=== PATIENT | male | born 1965 | race Caucasian/White ===

== ENCOUNTER 2023-08-25 20:50 | Emergency (ER) | payer OTHER, SELFPAY ==
[2023-08-25 20:55] VITALS: BP 144/98; PULSE 101; RESP 18; TEMP 36.8; O2SAT 95; BMI 33.2
--- NOTE | 2023-08-25 20:57 | ED_ITS ---
HPI - Chest Pain General Chief Complaint: Chest Pain Stated Complaint: Chest Pain Time Seen by Provider: 08/25/23 20:56 History of Present Illness HPI narrative: CC - chest pain Throughout the day, the patient has been having intermittent bouts of transient chest pain - mid sternal, non radiating, without associated symptoms - that last 2-3 seconds and has occurred 5 or 6 times today, including on the way here. He is not having pain now. He denied any recent fall, injury or recent activity that might account for the pain. No fever, chills, cough or cold symptoms. No GI or symptoms. Related Data Home Medications Medication Instructions Recorded Confirmed amlodipine 5 mg tablet 5 mg PO DAILY 08/25/23 08/25/23 atorvastatin 40 mg tablet 40 mg PO DAILY 08/25/23 08/25/23 loratadine 10 mg tablet 10 mg PO Q24H 08/25/23 08/25/23 losartan 100 1 tab PO DAILY 08/25/23 08/25/23 mg-hydrochlorothiazide 25 mg tablet metoprolol succinate 25 mg 25 mg PO DAILY 08/25/23 08/25/23 tablet,extended release 24 hr Allergies Allergy/AdvReac Type Severity Reaction Status Date / Time Penicillins Allergy Severe Anaphylaxis Verified 08/25/23 21:00 [facility] Medical History (Updated 08/25/23 @ 21:20 by Rolly Perez) Hypertension ?I10 - Essential (primary) hypertension (ICD-10) Social History Smoking status: Former smoker Exam Narrative Exam Narrative: Nurses notes and vital signs reviewed and patient is not hypoxic. afebrile General: Well-appearing and in no apparent distress. Skin: Warm, dry, no pallor noted. Eye: Pupils are equal, round and EOMI. No scleral icterus. Cardiovascular: Regular Rate and Rhythm without murmur, gallop or rub. Respiratory: No accessory muscle use or respiratory distress. Lungs are clear to auscultation, no wheezing, rales or rhonchi Chest Wall: no tenderness Musculoskeletal: normal ROM, no calf or popliteal tenderness, no lower extremity edema/swelling GI: Abdomen is soft, non-distended. Normal bowel sounds. No tenderness to palpation. No rebound, guarding, or rigidity noted. Neurological: A&O x4. No cranial nerve dysfunction observed. No truncal ataxia. Moves all extremities. Sensation intact. Psychiatric: Cooperative and interactive. Normal mood and affect. Constitutional Vital Signs, click to edit/add: Last Vital Signs Temp 98.2 F 08/25/23 20:55 Pulse 97 H 08/25/23 21:58 Resp 14 08/25/23 21:58 BP 118/70 08/25/23 21:58 Pulse Ox 98 08/25/23 21:58 O2 Del Method Room Air 08/25/23 21:58 Course Vital Signs Vital signs: Vital Signs Temperature 98.2 F 08/25/23 20:55 Pulse Rate 101 H 08/25/23 20:55 Respiratory Rate 18 08/25/23 20:55 Blood Pressure 144/98 H 08/25/23 20:55 Pulse Oximetry 95 08/25/23 20:55 Oxygen Delivery Method Room Air 08/25/23 20:55 Temperature 98.2 F 08/25/23 20:55 Pulse Rate 97 H 08/25/23 21:58 Respiratory Rate 14 08/25/23 21:58 Blood Pressure 118/70 08/25/23 21:58 Pulse Oximetry 98 08/25/23 21:58 Oxygen Delivery Method Room Air 08/25/23 21:58 MDM - Chest Pain MDM Narrative Medical decision making narrative: Patient was placed on groundwater monitoring technician and EKG obtained. Blood drawn and sent for evaluation, including lactate, procalcitonin and blood cultures per sepsis protocol - due to tachycardia. portable CXR obtained. EKG normal. CXR negative. CBC normal. Lactate 2.0. Negative Procalcitonin. CMP normal except elevated glucose at 336. Troponin negative - x2. HEART score = 2 indicating low risk and discharge home with out-patient follow up is recommended. Discussed elevated glucose level - patient already has appointment scheduled with PCP to get fasting blood testing and will follow up re: glucose. Patient and I - in the presence of his - discussed his symptoms, test results, HEART score, reason he is being discharged and reasons to return to the ED. Lab Data Attestation: I reviewed the patient's lab results. Labs: Lab Results 08/25/23 08/25/23 08/25/23 Range/Units 21:14 22:20 22:30 WBC 7.7 (4.0-11.0) 10^3/uL RBC 5.29 (4.70-6.10) 10^6/uL Hgb 16.2 (14.0-18.0) g/dL Hct 46.4 (42.0-54.0) % MCV 87.7 (80.0-94.0) fL MCH 30.6 (25.9-34.0) pg MCHC 34.9 (29.9-35.2) g/dL RDW 11.9 (11.0-15.0) % Plt Count 186 (150-450) 10^3/uL MPV 10.9 (9.5-13.5) fL Neut % (Auto) 54.7 (43.0-75.0) % Lymph % (Auto) 29.7 (20.5-60.0) % Placer % (Auto) 11.4 (1.7-12.0) % Eos % (Auto) 3.2 (0.9-7.0) % Baso % (Auto) 0.6 (0.2-2.0) % Neut # (Auto) 4.2 (1.4-6.5) 10^3/uL Lymph # (Auto) 2.3 (1.2-3.8) 10^3/uL Placer # (Auto) 0.9 H (0.3-0.8) 10^3/uL Eos # (Auto) 0.3 (0.0-0.7) 10^3/uL Baso # (Auto) 0.1 (0.0-0.1) 10^3/uL Abs Immat Gran (auto) 0.03 (0.00-0.03) 10^3/uL Imm/Tot Granulo (auto) 0.4 (0.0-0.5) % Sodium 139 (136-145) mmol/L Potassium 3.5 (3.5-5.1) mmol/L Chloride 100 (98-107) mmol/L Carbon Dioxide 28.2 (21.0-32.0) mmol/L Anion Gap 14.3 BUN 15.0 (7.0-18.0) mg/dL Creatinine 1.03 (0.70-1.30) mg/dL Est GFR ( Amer) >60 (>=60) Est GFR (Non-Af Amer) >60 (>=60) BUN/Creatinine Ratio 14.6 Glucose 336 H (74-106) mg/dL Lactate 2.0 (0.4-2.0) mmol/L Calcium 9.2 (8.5-10.1) mg/dL Total Bilirubin 0.5 (0.2-1.0) mg/dL AST 22 (15-37) U/L ALT 34 (16-63) U/L Alkaline Phosphatase 82 (46-116) U/L Troponin I High Sens 5.2 5.4 (4.0-76.1) pg/mL Total Protein 7.3 (6.4-8.2) g/dL Albumin 3.7 (3.4-5.0) g/dL Globulin 3.6 g/dL Albumin/Globulin Ratio 1.0 Procalcitonin <0.05 (0.00-0.50) ng/mL Urine Color Lt. yellow (YELLOW) Urine Clarity Clear (CLEAR) Urine pH 7.0 (5.0-9.0) Ur Specific [place] 1.010 (1.005-1.025) Urine Protein Negative (NEG/TRACE) mg/dL Urine Glucose (UA) >=1000 A (NEGATIVE) mg/dL Urine Ketones Negative (NEGATIVE) mg/dL Urine Occult Blood Negative (NEGATIVE) Urine Nitrite Negative (NEGATIVE) Urine Bilirubin Negative (NEGATIVE) Urine Urobilinogen 0.2 (0.2-1.0) EU/dL Ur Leukocyte Esterase Negative (NEGATIVE) Imaging Data Chest x-ray: Attestation: I have reviewed the pertinent imaging results. Radiologist's impression: ITS Impressions Chest X-Ray 08/25/23 21:05 IMPRESSION: No acute cardiopulmonary process. Electronically authenticated by: JOCELINE MCCAIN Date: 08/25/2023 21:48 ECG Data Attestation: I personally reviewed and interpreted this ECG as follows: Interpretation: EKG interpretation: Emergency Department physician interpretation. Normal sinus rhythm at 99bpm. Normal axis, normal intervals and no ST segment el evation or depression. Normal EKG. Heart Score History: Slightly/Non-Suspicious ECG: Normal Age: >45-<65 years Risk Factors: 1 or 2 Risk Factors Troponin: <Normal Limit Total Heart Score Recommendations & Risks:: 2 Discharge Plan Discharge Chief Complaint: Chest Pain Clinical Impression: Chest pain Patient Disposition: Home, Self-Care Time of Disposition Decision: 23:04 Prescriptions / Home Meds: No Action atorvastatin 40 mg tablet 40 mg PO DAILY metoprolol succinate 25 mg tablet extended release 24 hr 25 mg PO DAILY amlodipine 5 mg tablet 5 mg PO DAILY losartan-hydrochlorothiazide 100-25 mg tablet 1 tab PO DAILY loratadine 10 mg tablet 10 mg PO Q24H Instructions: Chest Pain (ED) Referrals: Clara Hernández [Primary Care Provider] - 1 week Stand Alone Forms: Portal Instructions
--- NOTE | 2023-08-25 21:05 | ECG_ITS ---
The [facility] Test Date: 2023-08-25 Pat Name: ROBERT FRITZ Department: Room: - Gender: Male Housekeeping Aid: : 1965 Requested By: Rolly Perez Order Number: [id number] Reading MD: THADDEUS WATTERS Measurements Intervals [place] Rate: 99 P: 69 ME: 180 QRS: 69 QRSD: 98 T: 66 QT: 338 QTc: 394 Interpretive Statements 1100 Sinus rhythm 9110 normal ECG No previous ECG available for comparison Electronically Signed On 08-29-2023 5:54:49 EST by THADDEUS WATTERS
--- NOTE | 2023-08-25 21:05 | XR_ITS ---
The [address] [address] Patient Name: ROBERT FRITZ MRN: [id number] date: 1965 Sex: M Assigned Patient Location: ER Current Patient Location: ER Accession/Order Number: [id number] Exam Date: 08/25/2023 21:25 Report Date: 08/25/2023 21:48 At the request of: ERICA PEARSON Procedure: XR chest 1V EXAM: XR chest 1V HISTORY: chest pain COMPARISON: Chest x-ray 07/19/2015 TECHNIQUE: Single AP radiograph of the chest FINDINGS: No pneumothorax, pleural effusion or consolidation. Normal heart size. No acute osseous abnormality. Chronic appearing right fifth rib fracture. XR/XR chest 1V IMPRESSION: No acute cardiopulmonary process. Electronically authenticated by: JOCELINE MCCAIN Date: 08/25/2023 21:48
[2023-08-25 21:22] VITALS: PULSE 99
[2023-08-25] MEDS: 0.9 % SODIUM CHLORIDE 1,000 ML 999 ML IV (21:30)
[2023-08-25 21:35] VITALS: BP 138/80; PULSE 94; RESP 18; O2SAT 97
[2023-08-25 21:36] LABS: Basophils Absolute Auto 0.1 10^3/uL (0.0-0.1); Basophils Percent Auto 0.6 % (0.2-2.0); Eosinophils Absolute Auto 0.3 10^3/uL (0.0-0.7); Eosinophils Percent Auto 3.2 % (0.9-7.0); Hematocrit 46.4 % (42.0-54.0); Hemoglobin 16.2 g/dL (14.0-18.0); Immature Granulocytes Abs Auto 0.03 10^3/uL (0.00-0.03); Immature Granulocytes Pct Auto 0.4 % (0.0-0.5); Lymphocytes Absolute Auto 2.3 10^3/uL (1.2-3.8); Lymphocytes Percent Auto 29.7 % (20.5-60.0); Mean Corpuscular HGB Conc 34.9 g/dL (29.9-35.2); Mean Corpuscular Hemoglobin 30.6 pg (25.9-34.0); Mean Corpuscular Volume 87.7 fL (80.0-94.0); Mean Platelet Volume 10.9 fL (9.5-13.5); Monocytes Absolute Auto 0.9 10^3/uL (0.3-0.8); Monocytes Percent Auto 11.4 % (1.7-12.0); Neutrophils Absolute Auto 4.2 10^3/uL (1.4-6.5); Neutrophils Percent Auto 54.7 % (43.0-75.0); Platelet Count 186 10^3/uL (150-450); Red Blood Count 5.29 10^6/uL (4.70-6.10); Red Cell Distribution Width 11.9 % (11.0-15.0); White Blood Count 7.7 10^3/uL (4.0-11.0)
[2023-08-25 21:49] LABS: Anion Gap 14.3
[2023-08-25 21:53] LABS: Alanine Aminotransferase 34 U/L (16-63); Albumin Level 3.7 g/dL (3.4-5.0); Alkaline Phosphatase 82 U/L (46-116); Aspartate Amino Transferase 22 U/L (15-37); BUN Creatinine Ratio 14.6; Bilirubin Total 0.5 mg/dL (0.2-1.0); Calcium 9.2 mg/dL (8.5-10.1); Carbon Dioxide 28.2 mmol/L (21.0-32.0); Chloride 100 mmol/L (98-107); Estimated GFR (African America >60 (>=60); Estimated GFR (Non-African Ame >60 (>=60); Globulin 3.6 g/dL; Glucose 336 mg/dL (74-106); Potassium 3.5 mmol/L (3.5-5.1); Sodium 139 mmol/L (136-145); Total Protein 7.3 g/dL (6.4-8.2); Troponin I High Sensitivity 5.2 pg/mL (4.0-76.1)
[2023-08-25 21:58] VITALS: BP 118/70; PULSE 97; RESP 14; O2SAT 98
[2023-08-25 22:08] LABS: PROCALCITONIN <0.05 ng/mL (0.00-0.50)
[2023-08-25 22:27] LABS: Bilirubin Urine NEGATIVE (NEGATIVE); Blood Urine NEGATIVE (NEGATIVE); Clarity Urine CLEAR (CLEAR); Color Urine LT. YELLOW (YELLOW); Glucose Urine UA >=1000 mg/dL (NEGATIVE); Ketones Urine NEGATIVE (NEGATIVE); Leukocyte Esterase Urine NEGATIVE (NEGATIVE); Nitrite Urine NEGATIVE (NEGATIVE); Protein Urine NEGATIVE (NEG/TRACE); Urobilinogen Urine 0.2 EU/dL (0.2-1.0)
[2023-08-25 22:30] LABS: Urine Microscopic Indicated NO
[2023-08-25 22:56] LABS: Troponin I High Sensitivity 5.4 pg/mL (4.0-76.1)
== END 2023-08-25 23:15 | disposition home or self-care (01) ==
PROVIDERS: Emergency Provider Emergency Medicine; PCP Family Medicine
DX: R07.9 Chest pain, unspecified (principal); I10 Essential (primary) hypertension; Z79.899 Other long term (current) drug therapy; Z87.891 Personal history of nicotine dependence
CPT/HCPCS: 36415; 71045; 80053; 81003; 83605; 84145; 84484; 85025; 87040; 93005; 99285

== ENCOUNTER 2024-09-28 17:51 | Emergency (ER) | payer OTHER, SELFPAY ==
[2024-09-28] VITALS (14 sets, daily range): BP systolic 118–125; BP diastolic 88–95; PULSE 79–95; TEMP 36.8; O2SAT 93–97; BMI 31.9
--- OUTSIDE RECORDS SUMMARY | 2024-09-28 18:02 | XMS_ITS | CCD ---
Author Organization [facility] Care Team Providers Care Customer Service Sales Consultant Name Role Phone FIDELIARADHACODY Attending Unavailable NON STAFF Primary Care Provider UnavailMD Michael Liu Attending Provider LEANNE Finn Primary Care Provider [phone] Maricruz Torres MD Primary Care Provider Michael Crews MD Attending Provider Dinora (Clinic) Tati WHITAKER Primary Care Provider ARY CRAIG Attending Unavailable MARICRUZ TORRES Primary Care Unavailab ARY Hooker Referring Unavailable MARICRUZ TORRES Primary Care Unavailab le SELF Referring Unavailable ARY CRAIG Attending Unavailable MARICRUZ TORERS Primary Care Unavailab le Michael Crews Admitting Unavaila ble [facility] (Clinic)Tati Primary Care Unavailabl e Michael Crews Attending Unavaila ble NON STAFF Primary Care Unavailable Michael Crews Attending Unavaila ble Michael Crews Admitting Unavaila ble Michael Crews Admitting Unavaila ble Óscar Finn Primary Care Unavailable Michael Crews Attending Unavaila ble Allergies Allergy Classification Reported Allergen(s) Allergy Type Date of Onset Reaction(s) Facility (5 sources) Penicillin; Translations: [PENICILLIN] Drug Allergy 03-14-2018 Anaphylaxis [facility] (3 sources) Ampicillin; Translations: [ampicillin] Drug Allergy 04-09-2024 Anaphylaxis [facility] (3 sources) Penicillins; Translations: [Penicillins] Allergy to substance 04-09-2024 Anaphylaxis [facility] Medications Current Medications Medication Drug Class(es) Dates Sig (Normalized) Sig (Original) amLODIPine 5 mg oral tablet (6 sources) Dihydropyridine Calcium Channel Humble Start: amLODIPine (NORVASC) 5 mg tablet Take by mouth. 08/21/2020 Active atorvastatin 40 mg oral tablet (6 sources) HMG-CoA Reductase Inhibitor Start: 4 atorvastatin (LIPITOR) 40 mg tablet Take by mouth. 08/25/2023 Active Bilevel Positive Airway Pressure (Bipap) (1 source) Start: 4 Bilevel Positive Airway Pressure (Bipap) Active 0 .ROUTE April 09, 2024 12:00am As directed [facility] Bilevel Positive Airway Pressure (Bipap) unit (1 source) Start: Bilevel Positive Airway Pressure (Bipap) unit Active 0 .ROUTE April 08, 2024 11:00pm As directed [facility] empagliflozin 10 mg oral tablet (7 sources) Sodium-Glucose Cotransporter 2 Inhibitor Start: 4 End: 5 take 1 tablet by mouth once daily at breakfast empagliflozin (JARDIANCE) 10 mg tablet Indications: Type 2 diabetes mellitus without complication, without long-term current use of insulin (HCC) Take 1 tablet by mouth daily with breakfast. 90 tablet 3 07/11/2024 Active hydroCHLOROthiazide 25 mg / losartan potassium 100 mg oral tablet (6 sources) Thiazide Diuretic, Angiotensin 2 Receptor Humble Start: 4 take 1 tablet by mouth once daily Losartan-Hydrochl orothiazide 100-25 mg tablet Active 1 TAB PO Daily April 08, 2024 11:00pm take 1 tablet by yaritza th once daily Losartan-Hydrochlorothiazide 100-12.5 mg per tablet Take 1 tablet by mouth once daily. Active 24 hr metoprolol succinate 25 mg extended release oral tablet (6 sources) beta-Adrenergic Humble Start: 08-24-2020 take 1 tablet by mouth once daily metoprolol succinate ER (TOPROL XL) 25 mg 24 hr tablet Take 25 mg by mouth once daily. 08/24/2020 Active Completed/Discontinued Medications Medication Drug Class(es) Dates Sig (Normalized) Sig (Original) glipiZIDE er 10 mg 24 hr extended release oral tablet (1 source) Sulfonylurea End: 03-25-2024 take 1 tablet by mouth once daily at breakfast glipiZIDE (GLUCOTROL XL) 10mg 24 hr tablet 1 tablet with breakfast Orally Once a day for 90 days 03/25/2024 Discontinued meloxicam 15 mg oral tablet (4 sources) Nonsteroidal Anti-inflammatory Drug Start: 07-02-2019 End: 07-11-2024 take 1 tablet by mouth once daily meloxicam (MOBIC) 15 mg tablet Indications: Tear of medial meniscus of right knee, current, unspecified tear type, initial encounter Take 1 tablet by mouth once daily. 30 tablet 1 07/02/2019 07/11/2024 Discontinued Problems Active Problems Problem Classification Problem Date Documented Da te Episodic/Chronic Diabetes mellitus without complication (5 sources) Type 2 diabetes mellitus without complication; Translations: [Type 2 diabetes mellitus without complications] Onset: 03-25-2024 03-25-2024 Chronic Disorders of lipid metabolism (2 sources) Hyperlipidemia; Translations: [Other hyperlipidemia] 03-25-2024 Chronic Essential hypertension (4 sources) Essential hypertension; Translations: [Essential (primary) hypertension] 03-25-2024 Chronic Other lower respiratory disease (4 sources) Dyspnea; Translations: [Dyspnea, unspecified] 01-03-2024 Episodic Other male genital disorders (4 sources) Pain in penis; Translations: [Other specified disorders of penis] Onset: 03-16-2018 03-16-2018 Chronic Residual codes; unclassified (4 sources) Obstructive sleep apnea syndrome; Translations: [Obstructive sleep apnea (adult) (pediatric)] 09-27-2023 Chronic Residual codes; unclassified (4 sources) Obstructive sleep apnea (adult) (pediatric); Translations: [Obstructive sleep apnea (adult)(pediatric)] 01-03-2024 Chronic Past or Other Problems Problem Classification Problem Date Documented Da te Episodic/Chronic Complications of surgical procedures or medical care (4 sources) Complication of cutaneous surgery; Translations: [Unspecified complication of procedure, initial encounter] Onset: 03-16-2018 03-16-2018 Episodic Other lower respiratory disease (5 sources) Dyspnea, unspecified; Translations: [Other respiratory abnormalities] Onset: 05-13-2024 01-03-2024 Episodic Results Test Name Value Interpretation Reference Range Facility CNOVon 07-11-2024 CNOV Office Visit (ENDOLN ) PATRICK FORD ([id number]) 1965 M Date Time Provider Department 07/11/24 1:00 PM ARY CRAIG ENDOLN During your visit today, we recorded the following information about you: Pulse Blood pressure Weight 75/minute 95/60 101.3 kg Ary Craig, LEO.SUPERVISORY AIDE 07/11/2024 1:20 PM Signed Endocrinology Follow Up History of Present Illness Patrick Ford is a 58 year old male presents today for follow up of DM Type 2. At [facility] stopped glipizide XL and started Jardiance. He has been checking his blood sugar very intermittently, about twice per week, but feels it is running higher. Has been getting readings 130-140, with one as high as 200. He cannot remember what time of day these were taken. He is wondering if he should resume glipizide instead. He has concerns for amputation risk on SGLT2i. He has no history of PAD. [facility] the [facility] but would like refill of this sent. Date of Diagnosis: 2023 Last HbA1c: Hemoglobin A1C (POCT) (%) Date Value 07/11/2024 6.8 03/25/2024 6.1 Family history of diabetes includes grandfather, aunt, sister. Complications Microvascular: none Macrovascular: none Diabetic Foot and Retinal Eye Exam not Overdue Prior DM Medications: Metformin-diarrhea Current DM Related Medications: Current Medications 07/11/2024 DIABETES THERAPIES Medication Dosage Pharm Subclass empagliflozin (JARDIANCE) 10 mg tablet Take 1 tablet by mouth daily with breakfast. Antihyperglycemic - Sodium Glucose Cotransporter-2 (SGLT2) Inhibitors CARDIOVASCULAR Medication Dosage Pharm Subclass amLODIPine (NORVASC) 5 mg tablet Take by mouth. Calcium Channel Blockers - Dihydropyridines atorvastatin (LIPITOR) 40 mg tablet Take by mouth. Antihyperlipidemic - HMG CoA Reductase Inhibitors (statins) Losartan-Hydrochlorothi azide 100-12.5 mg per tablet Take 1 tablet by mouth once daily. Angiotensin II Receptor Humble (ARB)-Diuretic Combinations metoprolol succinate ER (TOPROL XL) 25 mg 24 hr tablet Take 25 mg by mouth once daily. Beta Blockers Cardiac Selective OTHER Medication Dosage Pharm Subclass blood sugar diagnostic ([employer] ULTRA TEST) test strip Use with blood glucose test two times a day. Medical Supplies and DME - Blood Glucose Tests meloxicam (MOBIC) 15 mg tablet Take 1 tablet by mouth once daily. NSAID Analgesics (LAZARO Non-Specific) - Oxicam Derivatives Physical Activity: No formal program Diet: CHO Controlled Diet SMBG Frequency of Monitoring: Twice a week BG Values: 130-140 up to 200s Hypoglycemia Frequency: none Past History, Medications, Allergies No past medical history on file. No past surgical history on file. ALLERGIES Allergen Reactions Penicillin Anaphylaxis No family history on file. Review of Systems GENERAL: No weight loss, malaise or fevers RESPIRATORY: Negative for cough, hemoptysis, wheezing, COPD, dyspnea or shortness of breath CARDIOVASCULAR: Negative for chest pain, leg swelling, CHF or palpitations GI: No nausea, vomiting, or diarrhea ENDOCRINE: Negative for cold or heat intolerance, polyuria, polydipsia and goiter NEUROLOGIC:Negative for focal numbness or weakness, headaches and dizziness or syncope. Physical examination BP 95/60 (BP Site: Right Arm, BP Position: Sitting, BP Cuff Size: Large Adult) Pulse 75 Wt 101.3 kg (223 lb 5.2 oz) SpO2 97% General appearance: Well appearing, alert, in no acute distress, well-hydrated, well nourished. Skin: Skin color, texture, turgor normal, no suspicious rashes or lesions HEART: normal rate LUNGS: unlabored, normal respiratory rate EXTREMITIES No deformities, No skin discoloration and No edema NEURO: Speech normal, mental status intact, no tremor noted. Previous Laboratory Results LABS Glucose (mg/dL) Date Value 03/25/2024 91 Potassium (mmol/L) Date Value 03/25/2024 3.8 Sodium (mmol/L) Date Value 03/25/2024 138 Chloride (mmol/L) Date Value 03/25/2024 100 CO2 (mmol/L) Date Value 03/25/2024 27 Creatinine (mg/dL) Date Value 03/25/2024 0.83 BUN (mg/dL) Date Value 03/25/2024 15 Anion Gap (mmol/L) Date Value 03/25/2024 11 Calcium, Total (mg/dL) Date Value 03/25/2024 9.4 Estimated Glomerular Filtration Rate (mL/min/1.73m?) Date Value 03/25/2024 101 ALT (U/L) Date Value 03/25/2024 30 No results found for: TSH , FREET4 Impression/Recommendati ons IMPRESSION Patrick Ford is a 58 year old here for evaluation of DM Type 2 with no known complications. RECOMMENDATIONS: 1. Glycemic control: Target HbA1C is less than 7.0% per ADA guidelines. This patient is at target but POC readings seem to be averaging higher, however at infrequent testing frequency. Will have him check BID before meals over the next two weeks and forward readings. If POC readi (more content not included)... Normal [facility] HEMOGLOBIN A1C (POC)on 07-11 HbA1c (Bld) [Mass fraction] 6.8 % Abnormal 4.3 - 5.6 % [facility] Comment on above: Location:On license of [facility], [address] [place] [address], [facility] Point of care (POC) Hemoglobin A1c (HGBA1C) testing is intended to assess glucose control and provide a management tool for patients known to have diabetes and their healthcare providers. Target HGBA1C levels may depend on specific clinical circumstances. POC HGBA1C is not intended for use as a diagnostic or screening test; laboratory-based testing should be used for diagnostic purposes. The following information is supplemental and may not be applicable to specific diabetes management situations: The POC device casting and pasting supervisor provides a normal range of 4.2% to 6.5% for the HGBA1C POC test. However, the [place] [employer] guidelines indicate that patients with HGBA1C in the range of 5.7% to 6.4% are at increased risk for development of diabetes and that intervention by lifestyle modification may be beneficial. A HGBA1C level greater than or equal to 6.5% is considered diagnostic of diabetes, pending confirmatory testing. Use of HGBA1C testing to evaluate glucose control may not be appropriate for patients with hemoglobin variants or other conditions (e.g. anemia) that alter red blood cell lifespan. Interpretation and review of laboratory results Abnormal [facility] echo transthoracicon [facility] echo transthoracic [address] [place] [address] Echocardiogram Signed Patient: Patrick Ford MR#: [id number] 0005 : 1965 Acct:[id number] Age/Sex: 58 / M ADM Date: 05/13/24 Loc: Room: Type: [facility] Attending Dr: Michael Crews MD Ordering Provider: Michael Crews MD Date of Service: 05/13/24 ECH/ECH echo transthoracic: R06.00 - Dyspnea, unspecified Copies to: MD Ben Joseph MD Patrick Lee PM Patient Location: : 1965 Gender: Male (MM/DD/YYYY) Age: 58 Years Ordering Physician: Michael Crews Height: 68 in Weight: 215.004 lb Performed By: FRANK Pham BSA: 2.11 m2 BP: 125 / 82 mmHg HR: 71 bpm Reason For Study: R06.00 - Dyspnea, unspecified History: HTN, HLD, DM, Former Smoker, COVID, Palpiations + -------+ Interpretation Summary Ejection Fraction = 55-60%. The left ventricular size and thickness are normal. The left ventricular wall motion is normal. A variety of Doppler measurements indicate normal left ventricular diastolic function. There is trace tricuspid regurgitation. Right ventricular systolic pressure is normal. There is no comparison study available. This was essentially a normal study. Procedure/Quality: A two-dimensional transthoracic echocardiogram with color flow, Doppler and injection of contrast agent Definity was performed. The study was technically good in quality. Left Ventricle: The left ventricular size and thickness are normal. Ejection Fraction = 55-60%. A variety of Doppler measurements indicate normal left ventricular diastolic function. The left ventricular wall motion is normal. Left Atrium: The left atrium appears normal in size. Right Atrium: The right atrium appears normal in size. Right Ventricle: The right ventricle is normal in size and function. Aortic Valve: The aortic valve is normal in structure. No hemodynamically significant valvular aortic stenosis. No aortic regurgitation is present. Mitral Valve: The mitral valve is normal in structure. No significant mitral valve stenosis. There is no mitral regurgitation noted. Tricuspid Valve: The tricuspid valve is normal in structure. There is trace tricuspid regurgitation. Right ventricular systolic pressure is normal. Pulmonic Valve: The pulmonic valve is not well visualized. No significant pulmonic regurgitation. Arteries: The aortic root is normal size. Pericardium/Pleura: No pericardial effusion seen. There is no pleural effusion. IVC/Hepatic Veins: The inferior vena cava is normal in size, with a normal collapsibility index. MMode/2D Measurements Calculations IVSd (0.7-1.1 cm): 0.98 cm LVIDd (3.7-5.4 cm): 4.8 cm LVPWd (0.7-1.1 cm): 1.02 cm LVIDs (2.3-3.6 cm): 2.8 cm LA dimension (2.3-4.0 cm): 3.4 Ao root diam (2.0-3.2 cm): 3.3 cm cm FS: 40.9 % Ao root area: 8.8 cm2 EDV(Teich): 108.6 ml LVOT diam: 1.98 cm ESV(Teich): 30.8 ml LVOT area: 3.1 cm2 EF(Teich): 71.6 % LAV(MOD-sp2): 43.8 ml LAV(MOD-sp4): 34.0 ml LA A2 area: 16.1 cm2 LA A4 area: 15.1 cm2 LA length (vol): 5.2 cm LA vol: 39.8 ml LA vol index: 18.9 ml/m2 Doppler Measurements Calculations MV E max lenora: 83.6 cm/sec Ao V2 max: 166.8 cm/sec MV A max lenora: 90.4 cm/sec Ao max P.1 mmHg MR max lenora: 334.9 cm/sec Ao mean P.5 mmHg MV V2 VTI: 36.8 cm Ao V2 mean: 120.3 cm/sec MV P1/2t: 76.8 msec Ao V2 VTI: 29.2 cm MV dec time: 0.22 sec TIMO(I,D): 2.16 cm2 MV dec slope: 461.2 cm/sec?? TIMO(V,D): 1.95 cm2 E/E' lat: 6.3 E/E' med: 8.5 TV max P.0 mmHg LV V1 max: 105.4 cm/sec TR max lenora: 174.5 cm/sec LV V1 max P.4 mmHg TR max P.2 mmHg LV V1 mean: 69.4 cm/sec RAP systole: 5.0 mmHg LV V1 mean P.31 mmHg LV V1 VTI: 20.5 cm + ----+ + ----+ + ----+ ----+ : Electronically : : signed by: Ben : : : : Xander : : : : on: 05/13/2024, : : : : 7:29 PM : + ----+ ----+ Transcribed By: SCV Performed At: 05/13/24 3624 Signed By: Ben Terrell MD 05/13/241926 Normal [facility] Ken 04-04-2024 ARJUN Telephone (4CQ) PATRICK FORD ([id number]) 1965 M Date Time Provider Department 04/04/24 ARY CRAIG 4CQ During your visit today, we recorded the following information about you: Tyree Figueroa 04/04/2024 4:18 PM Signed Patrick is calling Ary Craig APRN.SUPERVISORY AIDE today Patient is asking if One Touch ultra testing strips can be ordered as he is about to run out. Patient test twice a day. Please advise and send to [facility] pharmacy in [place]. Medication Refill Patient has been identified by name and birthdate. Duration of symptoms: N/A Person calling: self Call patient at: at home [phone] (home) [phone] (cell) Was an appointment scheduled: No Closing statement: Results or non-symptom based questions: Thank you for calling [facility], your call will be returned within the next business day. Ary Brothers APRN.VICKI 04/08/2024 7:53 AM Signed Rx sent. Allergies As of Date: 04/04/2024 Noted Allergy Reaction PENICILLIN 03/14/2018 10 - Anaphylaxis Date Reviewed: 03/25/2024 Reviewed by: Ary Craig APRN.VICKI - Fully Assessed Reason for Visit: Orders [681] Order(s):blood sugar diagnostic (ONETOUCH ULTRA TEST) test stripUse with blood glucose test two times a day.Disp: 200 StripRfl: 3 Prescriptions as of 04/08/2024 - blood sugar diagnostic (ONETOUCH ULTRA TEST) test strip Use with blood glucose test two times a day. - metoprolol succinate ER (TOPROL XL) 25 mg 24 hr tablet Take 25 mg by mouth once daily. - atorvastatin (LIPITOR) 40 mg tablet Take by mouth. - amLODIPine (NORVASC) 5 mg tablet Take by mouth. - empagliflozin (JARDIANCE) 10 mg tablet Take 1 tablet by mouth daily with breakfast. - meloxicam (MOBIC) 15 mg tablet Take 1 tablet by mouth once daily. - Losartan-Hydrochlorothi azide 100-12.5 mg per tablet Take 1 tablet by mouth once daily. Problem List As Of Date 04/04/2024 Noted Resolved Penile pain [N48.89] 03/16/2018 Circumcision complication [T81.9XXA] 03/16/2018 Prescriptions ordered this encounter Disp Refills Start End BLOOD SUGAR DIAGNOSTIC STRIPS 200 * 3 04/08/2024 Sig: Use with blood glucose test two times a day. Encounter Status:Closed by ARY CRAIG on 04/08/[address] [facility] [address] (ENDOLN) PATRICK FORD ([id number]) 1965 M Date Time Provider Department 03/26/24 ARY CRAIG ENDOLN During your visit today, we recorded the following information about you: Ary Craig APRN.SUPERVISORY AIDE 03/26/2024 9:21 AM Signed Please notify patient of results: Kidney and liver panel is normal, urine protein test was normal. LDL bad cholesterol is at goal. Triglycerides are elevated- this can improve with weight loss, following a low fat diet and increasing activity. He should continue with his cholesterol medicine atorvastatin. Venecia Negrete LPN 03/26/2024 10:16 AM Signed Left message on machine to call the office. Esme Denson MA 03/29/2024 12:07 PM Signed Called and spoke with patient Message below reviewed Patient verbalized an understanding Allergies As of Date: 03/26/2024 Noted Allergy Reaction PENICILLIN 03/14/2018 10 - Anaphylaxis Date Reviewed: 03/25/2024 Reviewed by: Ary Craig APRN.SUPERVISORY AIDE - Fully Assessed Prescriptions as of 03/29/2024 - metoprolol succinate ER (TOPROL XL) 25 mg 24 hr tablet Take 25 mg by mouth once daily. - atorvastatin (LIPITOR) 40 mg tablet Take by mouth. - amLODIPine (NORVASC) 5 mg tablet Take by mouth. - empagliflozin (JARDIANCE) 10 mg tablet Take 1 tablet by mouth daily with breakfast. - meloxicam (MOBIC) 15 mg tablet Take 1 tablet by mouth once daily. - Losartan-Hydrochlorothi azide 100-12.5 mg per tablet Take 1 tablet by mouth once daily. Problem List As Of Date 03/26/2024 Noted Resolved Penile pain [N48.89] 03/16/2018 Circumcision complication [T81.9XXA] 03/16/2018 Encounter Status:Closed by ARY CRAIG on 03/26/24 Normal [facility] ALBUMIN/CREATININE RATIO, UR INEon 03-25-2024 Albumin DL <= 20 mg/L (U) [Mass/Vol] mg/dL Normal [facility] Comment on above: Order Comment: Speci men Type: URINE SPECIMEN Ordering Facility: [facility] Address: [address] [place] [address] Performed By: #### U ACR #### [facility] CLIA [id number] [address] [place] [address] [place] Albumin/Creatinine (U) [Mass ratio] Normal [facility] Comment on above: Order Comment: Speci men Type: URINE SPECIMEN Ordering Facility: [facility] Address: [address] [place] [address] Result Comment: Not calculated Adult Male and Female Nephrotic Criteria: <30 mg/g is considered normal to mildly increased 30-300 mg/g is considered moderately increased >300 mg/g is considered severely increased KDIGO. (2013). KDIGO 2012 Clinical Practice Guideline for the Evaluation and Management of Chronic Kidney Disease. Official Journal of the International Society of Nephrology, 3(1), 1-150. Performed By: #### U ACR #### [facility] CLIA [id number] [address] [place] [address] [place] Creatinine (U) [Mass/Vol] 39.4 mg/dL Normal 20.0-300.0 [facility] Comment on above: Order Comment: Speci men Type: URINE SPECIMEN Ordering Facility: [facility] Address: [address] [place] [address] Performed By: #### U ACR #### [facility] CLIA [id number] [address] [place] [address] [place] CNOVon 03-25-2024 CNOV Office Visit (ENDOLN ) LOGANPATRICK ([id number]) 1965 M Date Time Provider Department 03/25/24 12:15 PM ARY CRAIG ENDOLN During your visit today, we recorded the following information about you: Pulse Blood pressure Weight 70/minute 116/78 103.9 kg Ary Craig APRN.SUPERVISORY AIDE 03/25/2024 1:52 PM Signed Endocrinology Initial Diabetes Assessment Patrick Ford is here for a consultation regarding: DM Type 2 My final recommendations will be communicated back to the requesting physician by way of shared Medical record or letter to requesting physician via US mail. PCP is Maricruz Torres MD, MD Maricruz Torres MD [address] [place] [address] History of Present Illness Patrick Ford is a 58 year old male presents today for evaluation of DM Type 2 Diagnosed with diabetes this year in August. BG on labs was >300 at that time and HbA1c was 7.8%. He was started on metformin but had severe diarrhea from this. He was switched to Glipizide and is tolerating well, although is feeling low blood sugar symptoms a few times per week. HbA1c was 6.7% in November. HbA1c POC today was 6.1%. BG ranging 80-140. Feels low in the 80s. Date of Diagnosis: 2023 Last HbA1c: Hemoglobin A1C (POCT) (%) Date Value 03/25/2024 6.1 Family history of diabetes includes grandfather, aunt, sister. Complications Microvascular: none Macrovascular: none Diabetic Foot and Retinal Eye Exam not Overdue Prior DM Medications: Metformin-diarrhea Current DM Related Medications: Current Medications 03/25/2024 CARDIOVASCULAR Medication Dosage Pharm Subclass Losartan-Hydrochlorothi azide 100-12.5 mg per tablet Take 1 tablet by mouth once daily. Angiotensin II Receptor Humble (ARB)-Diuretic Combinations OTHER Medication Dosage Pharm Subclass meloxicam (MOBIC) 15 mg tablet Take 1 tablet by mouth once daily. NSAID Analgesics (LAZARO Non-Specific) - Oxicam Derivatives Physical Activity: No formal program Diet: CHO Controlled Diet SMBG Frequency of Monitoring: One time a day BG Values: See scanned documents Hypoglycemia Frequency: feels low few times per week Past History, Medications, Allergies History reviewed. No pertinent past medical history. History reviewed. No pertinent surgical history. ALLERGIES Allergen Reactions Penicillin Anaphylaxis History reviewed. No pertinent family history. Review of Systems GENERAL: No weight loss, malaise or fevers RESPIRATORY: Negative for cough, hemoptysis, wheezing, COPD, dyspnea or shortness of breath CARDIOVASCULAR: Negative for chest pain, leg swelling, CHF or palpitations GI: No nausea, vomiting, or diarrhea ENDOCRINE: Negative for cold or heat intolerance, polyuria, polydipsia and goiter NEUROLOGIC:Negative for focal numbness or weakness, headaches and dizziness or syncope. Physical examination BP 116/78 Pulse 70 Wt 103.9 kg (229 lb 0.9 oz) SpO2 97% General appearance: Well appearing, alert, in no acute distress, well-hydrated, well nourished. Skin: Skin color, texture, turgor normal, no suspicious rashes or lesions HEART: normal rate LUNGS: unlabored, normal respiratory rate EXTREMITIES No deformities, No skin discoloration and No edema NEURO: Speech normal, mental status intact, no tremor noted. Previous Laboratory Results LABS No results found for: GLUC , K , NA , CHLOR , CO2 , CREAT , BUN , ANION , CA , GFR , EGFRAA , EGFROTH No results found for: ALT No results found for: TSH , FREET4 Impression/Recommendati ons IMPRESSION Patrick Ford is a 58 year old here for evaluation of DM Type 2 with no known complications. RECOMMENDATIONS: 1. Glycemic control: Target HbA1C is less than 7.0% per ADA guidelines. This patient is at target but endorses symptoms of hypoglycemia a few times per week. Discussed GLP1RA or SGLT2i as an alternative as these would not cause hypoglycemia and are weight friendly. He does not wish to start an injection (and Marko is not on [employer] formulary). Plan to start SGLT2i. Risks and benefits discussed. Plan Stop: Glipizide XL 10 mg daily Start: Jardiance 10 mg daily Check your blood glucose 1 time per day and record data in logbook and bring to each visit Glucose targets as: Fasting 80-130, before meals 100-130, and bedtime 100-150 mg/dL. Call the office with blood sugars less than 70 Follow up with me in 3 months Patient to continue to follow up with his PCP and with other consultants regarding his other medical problems. The patient was reminded to check their blood glucose as directed and to record the data in a logbook. This patient was advised to bring their logbook to each office visit. I recommended at least 150 minutes per week of moderate physical activity, such as walking and to reduce carboh (more content not included)... Normal [facility] Comprehensive metabolic 2000 panelon 03-25-2024 Albumin [Mass/Vol] 4.5 g/dL Normal 3.9-4.9 [facility] Comment on above: Order Comment: Speci men Type: BLOOD SPECIMEN Ordering Facility: [facility] Address: [address] [place] [address] Performed By: #### 2 4323-8 #### [facility] CLIA [id number] [address] [place] [address] [place] #### 52964-3 #### [facility] CLIA [id number] [address] [place] [address] [place] [facility] CLIA [id number] [address] [place] [address] [place] ALP [Catalytic activity/Vol] 75 U/L Normal 38-113 [facility] Comment on above: Order Comment: Speci men Type: BLOOD SPECIMEN Ordering Facility: [facility] Address: [address] [place] [address] Performed By: #### 2 4323-8 #### [facility] CLIA [id number] [address] [place] [id number] [place] #### 97365-8 #### [facility] CLIA [id number] [address] [place] [id number] [place] [facility] CLIA [id number] [address] [place] [address] [place] ALT [Catalytic activity/Vol] 30 U/L Normal 10-54 [facility] Comment on above: Order Comment: Speci men Type: BLOOD SPECIMEN Ordering Facility: [facility] Address: [address] [place] [id number] Performed By: #### 2 4323-8 #### [facility] CLIA [id number] [address] [place], [place] [address] [place] #### 24321-9 #### [facility] CLIA [id number] [address] [place] [address] [address] [place] [facility] CLIA [id number] [address] [place] [address] [place] Anion gap [Moles/Vol] 11 mmol/L Normal 8-15 [facility] Comment on above: Order Comment: Speci men Type: BLOOD SPECIMEN Ordering Facility: [facility] Address: [address] [place] [address] Performed By: #### 2 4323-8 #### [facility] CLIA [id number] [address] [place], [place] [address] [place] #### 41318-3 #### [facility] CLIA [id number] [address] [place] [address] [address] [place] [facility] CLIA [id number] [address] [facility] [place] [address] [place] AST [Catalytic activity/Vol] 22 U/L Normal 14-40 [facility] Comment on above: Order Comment: Speci men Type: BLOOD SPECIMEN Ordering Facility: [facility] Address: [address] [place] [id number] Performed By: #### 2 4323-8 #### [facility] CLIA [id number] [address] [place] [address] [place] #### 91111-0 #### [facility] CLIA [id number] [address] [place], [place] [address] [place] [facility] CLIA [id number] [address] [place] [address] [place] Bilirubin [Mass/Vol] 0.4 mg/dL Normal 0.2-1.3 [facility] Comment on above: Order Comment: Speci men Type: BLOOD SPECIMEN Ordering Facility: [facility] Address: [address] [place] [id number] Performed By: #### 2 4323-8 #### [facility] CLIA [id number] [address] [place] [address] [place] #### 89205-5 #### [facility] CLIA [id number] [address] [place], [place] [address] [place] [facility] CLIA [id number] [address] [facility] [address] [place] Calcium [Mass/Vol] 9.4 mg/dL Normal 8.5-10.2 [facility] Comment on above: Order Comment: Speci men Type: BLOOD SPECIMEN Ordering Facility: [facility] Address: [address] [place] [id number] Performed By: #### 2 4323-8 #### [facility] CLIA [id number] [address] [place], [place] [address] [place] #### 50378-5 #### [facility] CLIA [id number] [address] [place] [address] [place] [facility] CLIA [id number] [address] [place] [address] [place] Chloride [Moles/Vol] 100 mmol/L Normal 98-107 [facility] Comment on above: Order Comment: Speci men Type: BLOOD SPECIMEN Ordering Facility: [facility] Address: [address] [place], [place] [address] Performed By: #### 2 4323-8 #### [facility] CLIA [id number] [address] [place] [address] [place] #### 38596-2 #### [facility] CLIA [id number] [address] [place] [address] [place] [facility] CLIA [id number] [address] [place] [address] [place] CO2 [Moles/Vol] 27 mmol/L Normal 22-30 [facility] Comment on above: Order Comment: Speci men Type: BLOOD SPECIMEN Ordering Facility: [facility] Address: [address] [place], [place] [address] Performed By: #### 2 4323-8 #### [facility] CLIA [id number] [address] [place] [address] [place] #### 78803-4 #### [facility] CLIA [id number] [address] [place], [place] [address] [place] [facility] CLIA [id number] [address] [place] [address] [place] Creatinine [Mass/Vol] 0.83 mg/dL Normal 0.73-1.22 [facility] Comment on above: Order Comment: Speci men Type: BLOOD SPECIMEN Ordering Facility: [facility] Address: [address] [place] [address] Performed By: #### 2 4323-8 #### [facility] CLIA [id number] [address] [place] [address] [place] #### 52293-3 #### [facility] CLIA [id number] [address] [place] [address] [place] [facility] CLIA [id number] [address] [place] [address] [place] Creatinine and Glomerular filtration rate.predicted panel (S/P/Bld) 101 mL/min/1.73m??? Normal >=60 [facility] Comment on above: Order Comment: Speci men Type: BLOOD SPECIMEN Ordering Facility: [facility] Address: [address] [place] [address] Result Comment: Herlinda mated Glomerular Filtration Rate (eGFR) is calculated using the 2020 CKD-EPI creatinine equation. This equation utilizes serum creatinine, sex, and age as parameters. The creatinine assay has traceable calibration to isotope dilution-mass spectrometry. Refer to KDIGO guidelines for clinical interpretation. In patients with unstable renal function, e.g. those with acute kidney injury, the eGFR may not accurately reflect actual GFR. Performed By: #### 2 4323-8 #### [facility] CLIA [id number] [address] [place] [address] [place] #### 27523-9 #### [facility] CLIA [id number] [address] [place], [place] [address] [place] [facility] CLIA [id number] [facility] [place] [address] [place] Glucose [Mass/Vol] 91 mg/dL Normal 74-99 [facility] Comment on above: Order Comment: Speci men Type: BLOOD SPECIMEN Ordering Facility: [facility] Address: [address] [place] [address] Result Comment: The [place] Diabetes Association (ADA) provides guidance for cutoff values for fasting glucose and random glucose. The ADA defines fasting as no caloric intake for at least 8 hours. Fasting plasma glucose results between 100 to 125 mg/dL indicate increased risk for diabetes (prediabetes). Fasting plasma glucose results greater than or equal to 126 mg/dL meet the criteria for diagnosis of diabetes. In the absence of unequivocal hyperglycemia, results should be confirmed by repeat testing. In a patient with classic symptoms of hyperglycemia or hyperglycemic crisis, random plasma glucose results greater than or equal to 200 mg/dL meet the criteria for diagnosis of diabetes. Reference: Standards of Medical Care in Diabetes 2016, [place] Diabetes Association. Diabetes Care. 2016.39(Suppl 1). Performed By: #### 2 4323-8 #### [facility] CLIA [id number] [address] [place] [address] [place] #### 03429-5 #### [facility] CLIA [id number] [address] [place] [address] [place] [facility] CLIA [id number] [address] [place] [address] [place] Potassium [Moles/Vol] 3.8 mmol/L Normal 3.7-5.1 [facility] Comment on above: Order Comment: Speci men Type: BLOOD SPECIMEN Ordering Facility: [facility] Address: [address] [place] [address] Performed By: #### 2 4323-8 #### [facility] CLIA [id number] [address] [place] [address] [place] #### 78586-4 #### [facility] CLIA [id number] [address] [place] [address] [place] [facility] CLIA [id number] [address] [place] [address] [place] Protein [Mass/Vol] 6.9 g/dL Normal 6.3-8.0 [facility] Comment on above: Order Comment: Speci men Type: BLOOD SPECIMEN Ordering Facility: [facility] Address: [address] [place] [address] Performed By: #### 2 4323-8 #### [facility] CLIA [id number] [facility] [place] [address] [place] #### 53512-0 #### [facility] CLIA [id number] [facility] [place] [address] [place] [facility] CLIA [id number] [address] [place] [address] [place] Sodium [Moles/Vol] 138 mmol/L Normal 136-144 [facility] Comment on above: Order Comment: Speci men Type: BLOOD SPECIMEN Ordering Facility: [facility] Address: [address] [place] [address] Performed By: #### 2 4323-8 #### [facility] CLIA [id number] [address] [place] [address] [place] #### 62585-8 #### [facility] CLIA [id number] [address] [place], [place] [address] [place] [facility] CLIA [id number] [address] [place] [address] [place] Urea nitrogen [Mass/Vol] 15 mg/dL Normal 9-24 [facility] Comment on above: Order Comment: Speci men Type: BLOOD SPECIMEN Ordering Facility: [facility] Address: [address] [place] [address] Performed By: #### 2 4323-8 #### [facility] CLIA [id number] [address] [place], [place] [address] [place] #### 00232-5 #### [facility] CLIA [id number] [address] [place], [place] [address] [place] [facility] CLIA [id number] [address] [place] [address] [place] 4 Ordered by an unspecified provider. [facility] HEMOGLOBIN A1C (POC)on 03-25 HbA1c (Bld) [Mass fraction] 6.1 % Abnormal 4.3 - 5.6 % [facility] Comment on above: Location:On license of [facility], [address] [place] [address], [place], [place], [facility] Point of care (POC) Hemoglobin A1c (HGBA1C) testing is intended to assess glucose control and provide a management tool for patients known to have diabetes and their healthcare providers. Target HGBA1C levels may depend on specific clinical circumstances. POC HGBA1C is not intended for use as a diagnostic or screening test; laboratory-based testing should be used for diagnostic purposes. The following information is supplemental and may not be applicable to specific diabetes management situations: The POC device casting and pasting supervisor provides a normal range of 4.2% to 6.5% for the HGBA1C POC test. However, the [place] Diabetes Association guidelines indicate that patients with HGBA1C in the range of 5.7% to 6.4% are at increased risk for development of diabetes and that intervention by lifestyle modification may be beneficial. A HGBA1C level greater than or equal to 6.5% is considered diagnostic of diabetes, pending confirmatory testing. Use of HGBA1C testing to evaluate glucose control may not be appropriate for patients with hemoglobin variants or other conditions (e.g. anemia) that alter red blood cell lifespan. Interpretation and review of laboratory results Abnormal [facility] Lipid 1996 panelon 4 Cholesterol [Mass/Vol] 131 mg/dL Normal <200 [facility] Comment on above: Order Comment: Speci men Type: BLOOD SPECIMEN Ordering Facility: [facility] Address: [address] [place] [address] Result Comment: <200 mg/dL, Desirable 200-239 mg/dL, Borderline high >239 mg/dL, High Performed By: #### 2 4323-8 #### [facility] CLIA [id number] [address] [place] [address] [place] #### 93458-7 #### [facility] CLIA [id number] [address] [place], [place] [address] [place] [facility] CLIA [id number] [facility] [place] [address] [place] Cholesterol in HDL [Mass/Vol] 40 mg/dL Normal >39 [facility] Comment on above: Order Comment: Froyi men Type: BLOOD SPECIMEN Ordering Facility: [facility] Address: [address] [place] [address] Result Comment: 40-5 9 mg/dL, Acceptable >59 mg/dL, High: Negative risk factor for coronary heart disease <40 mg/dL, Low: Positive risk factor for coronary heart disease Performed By: #### 2 4323-8 #### [facility] CLIA [id number] [address] [place] [address] [place] #### 37476-8 #### [facility] CLIA [id number] [address] [place] [address] [place] [facility] CLIA [id number] [address] [place] [address] [place] Cholesterol in LDL [Mass/Vol] 27 mg/dL Normal <100 [facility] Comment on above: Order Comment: Froyi men Type: BLOOD SPECIMEN Ordering Facility: [facility] Address: [address] [place] [address] Result Comment: <100 mg/dL, Optimal 100-129 mg/dL, Near optimal/above optimal 130-159 mg/dL, Borderline high 160-189 mg/dL, High >189 mg/dL, Very high Secondary prevention optimal LDL Cholesterol levels are recommended to be < 70 mg/dL Performed By: #### 2 4323-8 #### [facility] CLIA [id number] [address] [place] [address] [place] #### 34966-3 #### [facility] CLIA [id number] [address] [place], [place] [address] [place] [facility] CLIA [id number] [address] [facility] [address] Cholesterol in LDL/Cholesterol in HDL [Mass ratio] 0.68 {ratio} Normal <2.54 [facility] Comment on above: Order Comment: Speci men Type: BLOOD SPECIMEN Ordering Facility: [facility] Address: [address] [place] [address] Result Comment: Stella lakhani: 1. National Cholesterol Education Program ATP III Guideline At-A-Glance Quick Desk Reference: National Heart, Lung, and Blood [place]. National Institutes of Health. 2001: NIH Publication No. 01-3305. 2. An International Atherosclerosis Society position paper: global recommendations for the management of dyslipidemia: executive summary, Atherosclerosis. 2014: 232(2):410-413. Performed By: #### 2 4323-8 #### [facility] CLIA [id number] [address] [place] [address] [place] #### 22222-5 #### [facility] CLIA [id number] [address] [place] [address] [place] [facility] CLIA [id number] [address] [place] [id number] [place] Cholesterol in VLDL [Mass/Vol] 64 mg/dL High <30 [facility] Comment on above: Order Comment: Speci men Type: BLOOD SPECIMEN Ordering Facility: [facility] Address: [address] [place] [address] Performed By: #### 2 4323-8 #### [facility] CLIA [id number] [address] [place] [address] [place] #### 33017-1 #### [facility] CLIA [id number] [address] [place] [address] [place] [facility] CLIA [id number] [address] [place] [address] [place] Cholesterol non HDL [Mass/Vol] 91 mg/dL Normal <130 [facility] Comment on above: Order Comment: Speci men Type: BLOOD SPECIMEN Ordering Facility: [facility] Address: [address] [place], [place] [address] Result Comment: <130 mg/dL, Optimal 130-159 mg/dL, Near optimal/above optimal 160-189 mg/dL, Borderline high 190-219 mg/dL, High >219 mg/dL, Very high Secondary prevention optimal non HDL Cholesterol levels are recommended to be <100 mg/dL Performed By: #### 2 4323-8 #### [facility] CLIA [id number] [address] [place] [address] [place] #### 30642-5 #### [facility] CLIA [id number] [address] [place] [address] [place] [facility] CLIA [id number] [address] [place] [address] [place] Cholesterol.total/Ch olesterol in HDL [Mass ratio] 3.28 {ratio} Normal <5.10 [facility] Comment on above: Order Comment: Speci men Type: BLOOD SPECIMEN Ordering Facility: [facility] Address: [address] [place] [address] Performed By: #### 2 4323-8 #### [facility] CLIA [id number] [address] [place] [address] [place] #### 55824-3 #### [facility] CLIA [id number] [address] [place] [address] [place] [facility] CLIA [id number] [address] [place] [address] [place] FASTING TIME 6 hrs Normal [facility] Comment on above: Order Comment: Speci men Type: BLOOD SPECIMEN Ordering Facility: [facility] Address: [address] [place], [place] [address] Performed By: #### 2 4323-8 #### [facility] CLIA [id number] [address] [place] [address] [place] #### 23610-6 #### [facility] CLIA [id number] [address] [place] [address] [place] [facility] CLIA [id number] [address] [place] [address] [place] Triglyceride [Mass/Vol] 318 mg/dL High <150 [facility] Comment on above: Order Comment: Speci men Type: BLOOD SPECIMEN Ordering Facility: [facility] Address: [address] [place] [address] Result Comment: <150 mg/dL, Normal 150-199 mg/dL, Borderline high 200-499 mg/dL, High >499 mg/dL, Very high Performed By: #### 2 4323-8 #### [facility] CLIA [id number] [address] [place] [address] [place] #### 24506-7 #### [facility] CLIA [id number] [address] [place] [address] [place] [facility] CLIA [id number] [address] [place] [address] [place] XR chest 2V*on 01-03-2024 XR chest 2V* [facility] Main [place] [id number] XRay Report Signed Patient: Ernesto Ford) MR#: [id number] : 1965 Acct:[id number] Age/Sex: 58 / M ADM Date: 01/03/24 Loc: XD Room: Type: [facility] Attending Dr: Michael Crews MD Copies to: Michael Crews MD Ordering Provider: Michael Crews MD Date of Service: 01/03/24 XR/XR chest 2V*: R06.00 - Dyspnea, unspecified Chest 2 views CLINICAL HISTORY: Shortness of breath for 2 months. COMPARISON: None FINDINGS: Heart normal size. Lungs are clear. No free air. XR/XR chest 2V* IMPRESSION: NO ACUTE CARDIOPULMONARY ABNORMALITY. Impression dictated by: Guillermo Schulte Jr., DPhyllis01/03/2024 4:16 PM Dictation Location: [place] [address] Transcribed By: [facility] 01/03/241615 Dictated By: Guillermo Schulte Jr, DO 01/03/241614 Signed By: 01/03/24 161 Normal [facility] Vital Signs Date Time Vital Sign Value Performing Clinician Yumiko escalona 07-11-2024 12:24-0500 Diastolic blood pressure 60 mm[Hg] Ary Craig APRN.SUPERVISORY AIDE Work Phone: [facility] 07-11-2024 12:24-0500 Heart rate 75 /min Ary Craig APRN.SUPERVISORY AIDE Work Phone: [facility] 07-11-2024 12:24-0500 SaO2% (BldA) [Mass fraction] 97 % Ary Craig MOLD BURNER.SUPERVISORY AIDE Work Phone: [facility] 07-11-2024 12:24-0500 Systolic blood pressure 95 mm[Hg] Ary Craig MOLD BURNER.SUPERVISORY AIDE Work Phone: [facility] 07-11-2024 12:22-0500 Body weight 101.3 kg Ary Craig APRN.SUPERVISORY AIDE Work Phone: [facility] 04-09-2024 13:22-0400 Body height 175.26 cm [facility] 04-09-2024 13:22-0400 Body mass index (BMI) [Ratio] 32.6 kg/m2 [facility] 04-09-2024 13:22-0400 Body temperature 97.4 [degF] [facility] 04-09-2024 13:22-0400 Body weight 100.24 kg [facility] 04-09-2024 13:22-0400 Diastolic blood pressure 73 mm[Hg] [facility] 04-09-2024 13:22-0400 Heart rate 69 /min [facility] 04-09-2024 13:22-0400 Respiratory rate 20 /min [facility] 04-09-2024 13:22-0400 SaO2% (BldA) [Mass fraction] 96 % [facility] 04-09-2024 13:22-0400 Systolic blood pressure 109 mm[Hg] [facility] 03-25-2024 12:20-0400 Body weight 103.9 kg Ary Craig MOLD BURNER.SUPERVISORY AIDE Work Phone: [facility] 03-25-2024 12:20-0400 Diastolic blood pressure 78 mm[Hg] Ary Craig MOLD BURNER.SUPERVISORY AIDE Work Phone: [facility] 03-25-2024 12:20-0400 Heart rate 70 /min Ary Craig MOLD BURNER.SUPERVISORY AIDE Work Phone: [facility] 03-25-2024 12:20-0400 SaO2% (BldA) [Mass fraction] 97 % Ary Craig MOLD BURNER.SUPERVISORY AIDE Work Phone: [facility] 03-25-2024 12:20-0400 Systolic blood pressure 116 mm[Hg] Ary Craig MOLD BURNER.SUPERVISORY AIDE Work Phone: [facility] 01-03-2024 14:37-0400 Body height 175.26 cm [facility] 01-03-2024 14:37-0400 Body mass index (BMI) [Ratio] 34 kg/m2 [facility] 01-03-2024 14:37-0400 Body weight 104.32 kg [facility] 01-03-2024 14:37-0400 Diastolic blood pressure 76 mm[Hg] [facility] 01-03-2024 14:37-0400 Heart rate 75 /min [facility] 01-03-2024 14:37-0400 SaO2% (BldA) [Mass fraction] 93 % [facility] 01-03-2024 14:37-0400 Systolic blood pressure 119 mm[Hg] [facility] Encounters Encounter Date Encounter Type Care Provider Facility Start: 07-11-2024 End: 07-11-2024 ambulatory ARY CRAIG Facility:[facility] Start: 07-11-2024 End: 07-11-2024 Patient encounter procedure Ary Craig APRN.SUPERVISORY AIDE Work Phone: Endocrinology Comment on above: Type 2 diabetes ondina itus without complication, without long- term current use of insulin (HCC) (Primary Dx); Primary hypertension; Other hyperlipidemia Start: 05-13-2024 End: 05-13-2024 Patient encounter procedure Tati Farias ([facility]) DO Work Phone: [facility] Work Phone: Start: 05-13-2024 End: 05-13-2024 ambulatory Tati Farias ([facility]) DO Work Phone: [facility] Work Phone: Start: 04-09-2024 End: 04-09-2024 ambulatory [facility] Work Phone: Start: 04-09-2024 End: 04-09-2024 Patient encounter procedure [facility] Work Phone: Start: 04-04-2024 End: 04-08-2024 Telephone encounter Ary Craig APRN.SUPERVISORY AIDE Work Phone: [address] [place] [address] Comment on above: Orders Start: 03-26-2024 End: 03-26-2024 Telephone encounter Ary Craig APRN.SUPERVISORY AIDE Work Phone: Endocrinology Start: 03-25-2024 End: 03-25-2024 ambulatory ARY CARIG Facility:[facility] Start: 03-25-2024 End: 03-25-2024 ambulatory SELF Facility:[facility] Start: 03-25-2024 End: 03-25-2024 Patient encounter procedure Ary Craig APRN.SUPERVISORY AIDE Work Phone: Endocrinology Comment on above: Type 2 diabetes ondina itus without complication, without long- term current use of insulin (HCC) (Primary Dx); Primary hypertension; Other hyperlipidemia Start: 01-08-2024 Non-patient / Non-visit [facility] Work Phone: Start: 01-08-2024 End: 01-08-2024 Patient encounter procedure [facility] Work Phone: Start: 01-08-2024 End: 01-08-2024 ambulatory NON STAFF [facility] Work Phone: Start: 01-03-2024 End: 01-03-2024 ambulatory NON STAFF [facility] Work Phone: Start: 01-03-2024 End: 01-03-2024 Patient encounter procedure [facility] [place] Work Phone: Start: 07-17-2023 End: 07-17-2023 ambulatory [facility] Not Available Procedures Date Procedure Procedure Detail Performing Clinician Start: 07-11-2024 Hemoglobin A1c/Hemoglobin.total in Blood Ary Rafa MOLD BURNER.SUPERVISORY AIDE Work Phone: Start: 03-25-2024 [facility] Start: 03-25-2024 Hemoglobin A1c/Hemoglobin.total in Blood Ary Rafa MOLD BURNER.SUPERVISORY AIDE Work Phone: Start: 03-25-2024 Lipid 1996 panel - S jennifer or Plasma Ary Rafa MOLD BURNER.SUPERVISORY AIDE Work Phone: Start: 01-03-2024 Plain chest X-ray Start: 08-05-2020 Lipid 1996 panel - S jennifer or Plasma Ary Rafa MOLD BURNER.SUPERVISORY AIDE Work Phone: Plan of Treatment Date Care Activity Detail Author Start: 03-25-2029 Lipid panel Lipid Screening [facility] Start: 03-25-2027 Diabetes Screening Diabetes Screenin g [facility] Start: 08-05-2025 Lipid panel Lipid Screening [facility] Start: 07-11-2025 BP Controlled (<130/80) BP Controlle d (<130/80) [facility] Start: 03-25-2025 Hepatitis B screening Urine Albumin:Creatinine Ratio [facility] Start: 03-25-2025 Hepatitis B surface antibody level LDL Cholesterol [facility] Start: 01-08-2025 Hemoglobin A1c measurement HbA1C [facility] Start: 07-11-2024 End: 07-11-2024 Patient encounter procedure 07/11/2024 1:00 PM EST Office Visit Endocrinology [address] [place] [address] Ary Craig APRN.SUPERVISORY AIDE [address] [place] [address] 3 months (around 06/24/2024 Endocrinology Comment on above: 3 months (around Start: 03-25-2024 End: 06-24-2024 Comprehensive metabolic 2000 panel - Serum or Plasma [facility] Work Phone: Comment on above: Expected: 03/25/2024 , Expires: 06/24/2024 Start: 03-25-2024 End: 06-24-2024 Lipid 1996 panel - Serum or Plasma [facility] Comment on above: Expected: 03/25/2024 , Expires: 06/24/2024 Start: 03-25-2024 End: 06-24-2024 Microalbumin/Creatinine [Mass Ratio] in Urine [facility] Comment on above: Expected: 03/25/2024 , Expires: 06/24/2024 Start: 02-25-2024 Covid-19 Vaccine ( season) Covid-19 Vaccine ( season) [facility] Start: 02-25-2024 Influenza vaccination Influenza Vacc ine (#1) [facility] Start: 2019 Prostate specific antigen measurement Prostate Cancer Screening Discussion [facility] Start: 2014 Shingrix Vaccine (1 of 2) Shingrix Vaccine (1 of 2) [facility] Start: 2009 Screening for malign ant neoplasm of colon [facility] Start: 1983 Pneumococcal Vaccine : 50+ (1 of 2 - PCV) Pneumococcal Vaccine: 50+ (1 of 2 - PCV) [facility] Start: 1983 Urine microalbumin profile DTaP,Tdap,Td Vaccine (1 - Tdap) [facility] Start: 1982 Annual PCP Team Diamond Polisher yeny Disease Visit Annual PCP Team Chronic Disease Visit [facility] Start: 1982 Anxiety Screening Anxiety Screening [facility] Start: 1982 Depression Screening Depression Scre ening [facility] Start: 1982 Hepatitis C screening Hepatitis C Sc yuridia [facility] Start: 1982 HIV screening [facility] Start: 1974 Diabetic foot examination Diabetic Foot Exam [facility] Start: 1974 Glaucoma screening Dilated Retinal E xam [facility] US Heart Transthoracic [facility] Immunizations Immunization Date Immunization Notes Care Provider Rolo johnson 04-29-1996 influenza virus vacc ine, unspecified formulation Ary Craig MOLD BURNER.SUPERVISORY AIDE Work Phone: [facility] Payers Date Payer Category Payer Self-pay 2022 Medicaid [employer] [id number] 2022-Present [phone] [address] [place] [address] Medicaid [id number] 2022 Medicaid [id number] 1965 Unknown [id number] Unknown [id number] Unknown [id number] Unknown [id number] Social History Date Type Detail Facility Tobacco smoking stat [facility] Unknown if ever smoked [facility] Work Phone: Start: 1965 Sex Assigned At Male F [facility] Tobacco smoking stat [facility] Tobacco smoking consumption unknown [facility] Start: 03-25-2024 End: 07-11-2024 History of Social function [facility] Start: 03-25-2024 End: 07-11-2024 Area Deprivation Index [facility] National Score (1-10 0), lower number is lower risk 82 [facility] Start: 1965 Sex assigned at Not on file C [facility] Start: 04-09-2024 End: 10-15-2024 Tobacco smoking status NHIS Ex-smoker (finding) [facility] Start: 05-14-2024 Sex Male (finding) [facility] Start: 07-11-2024 Tobacco smoking stat us [facility] Never smoked tobacco [facility] History of tobacco use Passive smoker [facility] Start: 07-11-2024 Tobacco use and exposure Smoke less tobacco non-user [facility] Start: 07-11-2024 Alcoholic beverage intake Current drinker of alcohol (finding) [facility] Medical Equipment Procedure Code Equipment Code Equipment Origin al Text Equipment Identifier Dates Use with blood glucose test two times a day. [id number] Start: 04-08-2024 Clinical Notes 03-25-2024 to 07-11-2024 Patient InstructionsAry Craig APRN.VICKI - 07/11/2024 11:58 AM EST Note Date & Type Note Facility 07-11-2024 Instructions Ary Craig APRN.CNP - 07/11/2024 12:57 PM EST Plan Continue: Jardiance 10 mg daily Check your blood glucose 2 times per day and record data in logbook and bring to each visit Glucose targets as: Fasting 80-130, before meals 100-130, and bedtime 100-150 mg/dL. Call the office with blood sugars less than 70 Follow up in 3 months documented in this encounter [facility] 07-11-2024 Note HNO ID: [id number] Author: ARY CRAIG APRN.CNP Service: ? Author Type: Nurse Practitioner Type: Progress Notes Filed: 07/11/2024 13:20 Note Text: Endocrinology Follow Up History of Present Illness Patrick Ford is a 58 year old male presents today for follow up of DM Type 2. At [facility] stopped glipizide XL and started Jardiance. He has been checking his blood sugar very intermittently, about twice per week, but feels it is running higher. Has been getting readings 130-140, with one as high as 200. He cannot remember what time of day these were taken. He is wondering if he should resume glipizide instead. He has concerns for amputation risk on SGLT2i. He has no history of PAD. [facility] and [facility] [place] [facility] [place] but would like refill of this sent. Date of Diagnosis: 2023 Last HbA1c: Hemoglobin A1C (POCT) (%) Date Value 07/11/2024 6.8 03/25/2024 6.1 Family history of diabetes includes grandfather, aunt, sister. Complications Microvascular: none Macrovascular: none Diabetic Foot and Retinal Eye Exam not Overdue Prior DM Medications: Metformin-diarrhea Current DM Related Medications: Current Medications 07/11/2024 DIABETES THERAPIES Medication Dosage Pharm Subclass empagliflozin (JARDIANCE) 10 mg tablet Take 1 tablet by mouth daily with breakfast. Antihyperglycemic - Sodium Glucose Cotransporter-2 (SGLT2) Inhibitors CARDIOVASCULAR Medication Dosage Pharm Subclass amLODIPine (NORVASC) 5 mg tablet Take by mouth. Calcium Channel Blockers - Dihydropyridines atorvastatin (LIPITOR) 40 mg tablet Take by mouth. Antihyperlipidemic - HMG CoA Reductase Inhibitors (statins) Losartan-Hydrochlorothiazide 100-12.5 mg per tablet Take 1 tablet by mouth once daily. Angiotensin II Receptor Humble (ARB)-Diuretic Combinations metoprolol succinate ER (TOPROL XL) 25 mg 24 hr tablet Take 25 mg by mouth once daily. Beta Blockers Cardiac Selective OTHER Medication Dosage Pharm Subclass blood sugar diagnostic ([employer] ULTRA TEST) test strip Use with blood glucose test two times a day. Medical Supplies and DME - Blood Glucose Tests meloxicam (MOBIC) 15 mg tablet Take 1 tablet by mouth once daily. NSAID Analgesics (LAZARO Non-Specific) - Oxicam Derivatives Physical Activity: No formal program Diet: CHO Controlled Diet SMBG Frequency of Monitoring: Twice a week BG Values: 130-140 up to 200s Hypoglycemia Frequency: none Past History, Medications, Allergies No past medical history on file. No past surgical history on file. ALLERGIES Allergen Reactions Penicillin Anaphylaxis No family history on file. Review of Systems GENERAL: No weight loss, malaise or fevers RESPIRATORY: Negative for cough, hemoptysis, wheezing, COPD, dyspnea or shortness of breath CARDIOVASCULAR: Negative for chest pain, leg swelling, CHF or palpitations GI: No nausea, vomiting, or diarrhea ENDOCRINE: Negative for cold or heat intolerance, polyuria, polydipsia and goiter NEUROLOGIC:Negative for focal numbness or weakness, headaches and dizziness or syncope. Physical examination BP 95/60 (BP Site: Right Arm, BP Position: Sitting, BP Cuff Size: Large Adult) Pulse 75 Wt 101.3 kg (223 lb 5.2 oz) SpO2 97% General appearance: Well appearing, alert, in no acute distress, well-hydrated, well nourished. Skin: Skin color, texture, turgor normal, no suspicious rashes or lesions HEART: normal rate LUNGS: unlabored, normal respiratory rate EXTREMITIES No deformities, No skin discoloration and No edema NEURO: Speech normal, mental status intact, no tremor noted. Previous Laboratory Results LABS Glucose (mg/dL) Date Value 03/25/2024 91 Potassium (mmol/L) Date Value 03/25/2024 3.8 Sodium (mmol/L) Date Value 03/25/2024 138 Chloride (mmol/L) Date Value 03/25/2024 100 CO2 (mmol/L) Date Value 03/25/2024 27 Creatinine (mg/dL) Date Value 03/25/2024 0.83 BUN (mg/dL) Date Value 03/25/2024 15 Anion Gap (mmol/L) Date Value 03/25/2024 11 Calcium, Total (mg/dL) Date Value 03/25/2024 9.4 Estimated Glomerular Filtration Rate (mL/min/1.73m?) Date Value 03/25/2024 101 ALT (U/L) Date Value 03/25/2024 30 No results found for: TSH , FREET4 Impression/Recommendations IMPRESSION Patrick Ford is a 58 year old here for evaluation of DM Type 2 with no known complications. RECOMMENDATIONS: 1. Glycemic control: Target HbA1C is less than 7.0% per ADA guidelines. This patient is at target but POC readings seem to be averaging higher, however at infrequent testing frequency. Will have him check BID before meals over the next two weeks and forward readings. If POC readings remain above goal, consider empagliflozin-linagliptin combination or will add separate DPPIV-inh. Discussed amputation risk with SGLT2i, which is greater in the setting of PAD, which patient does not have a history of, however also revi (more content not included)... [facility] 07-11-2024 History of Present illness Narrative Endocrinology Follow Up History of Present Illness Patrick Ford is a 58 year old male presents today for follow up of DM Type 2. At [facility] stopped glipizide XL and started Jardiance. He has been checking his blood sugar very intermittently, about twice per week, but feels it is running higher. Has been getting readings 130-140, with one as high as 200. He cannot remember what time of day these were taken. He is wondering if he should resume glipizide instead. He has concerns for amputation risk on SGLT2i. He has no history of PAD. [facility] but would like refill of this sent. Date of Diagnosis: 2023 Last HbA1c: Hemoglobin A1C (POCT) (%) Date Value 07/11/2024 6.8 03/25/2024 6.1 Family history of diabetes includes grandfather, aunt, sister. Complications Microvascular: none Macrovascular: none Diabetic Foot and Retinal Eye Exam not Overdue Prior DM Medications: Metformin-diarrhea Current DM Related Medications: Current Medications 07/11/2024 DIABETES THERAPIES Medication Dosage Pharm Subclass empagliflozin (JARDIANCE) 10 mg tablet Take 1 tablet by mouth daily with breakfast. Antihyperglycemic - Sodium Glucose Cotransporter-2 (SGLT2) Inhibitors CARDIOVASCULAR Medication Dosage Pharm Subclass amLODIPine (NORVASC) 5 mg tablet Take by mouth. Calcium Channel Blockers - Dihydropyridines atorvastatin (LIPITOR) 40 mg tablet Take by mouth. Antihyperlipidemic - HMG CoA Reductase Inhibitors (statins) Losartan-Hydrochlorothiazide 100-12.5 mg per tablet Take 1 tablet by mouth once daily. Angiotensin II Receptor Humble (ARB)-Diuretic Combinations metoprolol succinate ER (TOPROL XL) 25 mg 24 hr tablet Take 25 mg by mouth once daily. Beta Blockers Cardiac Selective OTHER Medication Dosage Pharm Subclass blood sugar diagnostic ([employer] ULTRA TEST) test strip Use with blood glucose test two times a day. Medical Supplies and DME - Blood Glucose Tests meloxicam (MOBIC) 15 mg tablet Take 1 tablet by mouth once daily. NSAID Analgesics (LAZARO Non-Specific) - Oxicam Derivatives Physical Activity: No formal program Diet: CHO Controlled Diet SMBG Frequency of Monitoring: Twice a week BG Values: 130-140 up to 200s Hypoglycemia Frequency: none Past History, Medications, Allergies No past medical history on file. No past surgical history on file. ALLERGIES Allergen Reactions Penicillin Anaphylaxis No family history on file. Review of Systems GENERAL: No weight loss, malaise or fevers RESPIRATORY: Negative for cough, hemoptysis, wheezing, COPD, dyspnea or shortness of breath CARDIOVASCULAR: Negative for chest pain, leg swelling, CHF or palpitations GI: No nausea, vomiting, or diarrhea ENDOCRINE: Negative for cold or heat intolerance, polyuria, polydipsia and goiter NEUROLOGIC:Negative for focal numbness or weakness, headaches and dizziness or syncope. Physical examination BP 95/60 (BP Site: Right Arm, BP Position: Sitting, BP Cuff Size: Large Adult) Pulse 75 Wt 101.3 kg (223 lb 5.2 oz) SpO2 97% General appearance: Well appearing, alert, in no acute distress, well-hydrated, well nourished. Skin: Skin color, texture, turgor normal, no suspicious rashes or lesions HEART: normal rate LUNGS: unlabored, normal respiratory rate EXTREMITIES No deformities, No skin discoloration and No edema NEURO: Speech normal, mental status intact, no tremor noted. Previous Laboratory Results LABS Glucose (mg/dL) Date Value 03/25/2024 91 Potassium (mmol/L) Date Value 03/25/2024 3.8 Sodium (mmol/L) Date Value 03/25/2024 138 Chloride (mmol/L) Date Value 03/25/2024 100 CO2 (mmol/L) Date Value 03/25/2024 27 Creatinine (mg/dL) Date Value 03/25/2024 0.83 BUN (mg/dL) Date Value 03/25/2024 15 Anion Gap (mmol/L) Date Value 03/25/2024 11 Calcium, Total (mg/dL) Date Value 03/25/2024 9.4 Estimated Glomerular Filtration Rate (mL/min/1.73m ) Date Value 03/25/2024 101 ALT (U/L) Date Value 03/25/2024 30 No results found for: TSH , FREET4 Impression/Recommendations IMPRESSION Patrick Ford is a 58 year old here for evaluation of DM Type 2 with no known complications. RECOMMENDATIONS: 1. Glycemic control: Target HbA1C is less than 7.0% per ADA guidelines. This patient is at target but POC readings seem to be averaging higher, however at infrequent testing frequency. Will have him check BID before meals over the next two weeks and forward readings. If POC readings remain above goal, consider empagliflozin-linagliptin combination or will add separate DPPIV-inh. Discussed amputation risk with SGLT2i, which is greater in the setting of PAD, which patient does not have a history of, however also reviewed cardiorenal benefits of SGLT2i. Discussed risk of hypoglycemia and beta cell burnout from sulfonylurea. He did not tolerate metformin and does not wish to be on a GLP1 RA. Reviewed importance of lifestyle modifications in treatment of diabetes as well. Patient in agreement with plan listed above. Plan Continue: Jardiance 10 mg daily Check your blood glucose 2 times per day and record data in logbook and bring to each visit Glucose targets as: Fasting 80-130, before meals 100-130, and bedtime 100-150 mg/dL. Call the office with blood sugars less than 70 Follow up in 3 months Patient to continue to follow up with his PCP and with other consultants regarding his other medical problems. The patient was reminded to check their blood glucose as directed and to record the data in a logbook. This patient was advised to bring their logbook to each office visit. I recommended at least 150 minutes per week of moderate physical activity, such as walking and to reduce carbohydrates and overall caloric intake. 2. Hypertension/BP control: BP goal for patients with diabetes is 130/80. -- This patient is at target on their current regimen. Managed by PCP. 3. Lipids: Target LDL cholesterol in patients with diabetes is less than 100, less than 70 if patient has overt CVD. Several studies have shown cardiovascular benefits of statin therapy in all patients with diabetes over age 40 with at least 1 CVD risk factor. Cholesterol, Total Date Value Ref Range Status 03/25/2024 131 <200 mg/dL Final Comment: <200 mg/dL, Desirable 200-239 mg/dL, Borderline high >239 mg/dL, High HDL Cholesterol Date Value Ref Range Status 03/25/2024 40 >39 mg/dL Final Comment: 40-59 mg/dL, Acceptable >59 mg/dL, High: Negative risk factor for coronary heart disease <40 mg/dL, Low: Positive risk factor for coronary heart disease LDL Cholesterol Date Value Ref Range Status 03/25/2024 27 <100 mg/dL Final Comment: <100 mg/dL, Optimal 100-129 mg/dL, Near optimal/above optimal 130-159 mg/dL, Borderline high 160-189 mg/dL, High >189 mg/dL, Very high Secondary prevention optimal LDL Cholesterol levels are recommended to be < 70 mg/dL Triglyceride Date Value Ref Range Status 03/25/2024 318 (H) <150 mg/dL Final Comment: <150 mg/dL, Normal 150-199 mg/dL, Borderline high 200-499 mg/dL, High >499 mg/dL, Very high -- This patient is at target on statin. 4. Nephropathy screening: Annual measurement of urine albumin excretion is recommended in patients with diabetes. Albumin/Creat Ratio (no units) Date Value 03/25/2024 Comment: Not calculated Adult Male and Female Nephrotic Criteria: <30 mg/g is considered normal to mildly increased 30-300 mg/g is considered moderately increased >300 mg/g is considered severely increased KDIGO. (2013). KDIGO 2012 Clinical Practice Guideline for the Evaluation and Management of Chronic Kidney Disease. Official Journal of the International Society of Nephrology, 3(1), 1-150. Creatinine, Ur Random (UCRR) (mg/dL) Date Value 03/25/2024 39.4 -- This patient does not have microalbuminuria and is on ARB. 5. Ophthalmology: Annual dilated eye exams are recommended for patients with type 1 and type 2 diabetes. -- This patient is not up to date with their annual eye exam and was referred to an field service tech at this visit. Any part of this document that has been added/copied & pasted from other documents has been reviewed for accuracy and updated as appropriate at the time of the patient encounter Ary Craig APRN.VICKI (Signed electronically to expedite mailing) documented in this encounter [facility] 04-09-2024 Evaluation note Diagnosis Onset Date Resolution Dyspnea acute April 09, 2024 12:58pm Sleep apnea, obstructive acute April 09 12:58pm [facility] Work Phone: [phone] 558-535610-14-2024 Telephone encounter Note* Telephone Encounter - Ary Craig APRN.CNP - 04/08/2024 7:53 AM EDT Rx sent. [facility]10-14-2024 Miscellaneous Notes* Telephone Encounter - Ary Craig APRN.CNP - 04/08/2024 7:53 AM EDT Rx sent. * Telephone Encounter - Tyree Figueroa - 04/04/2024 4:16 PM EDT Patrick is calling Ary Craig APRN.VICKI today Patient is asking if One Touch ultra testing strips can be ordered as he is about to run out. Patient test twice a day. Please advise and send to [facility] in [place]. Medication Refill Patient has been identified by name and birthdate. Duration of symptoms: N/A Person calling: self Call patient at: at home [phone] (home) [phone] (cell) Was an appointment scheduled: No Closing statement: Results or non-symptom based questions: Thank you for calling [facility], your call will be returned within the next business day. Tyree Figueroa [facility] Telephone encounter Note * Telephone Encounter - Tyree Figueroa - 04/04/2024 4:16 PM EDT Patrick is calling Ary Craig APRN.VICKI today Patient is asking if One Touch ultra testing strips can be ordered as he is about to run out. Patient test twice a day. Please advise and [facility] to [facility] [facility] [place]. Medication Refill Patient has been identified by name and birthdate. Duration of symptoms: N/A Person calling: self Call patient at: at home [phone] (home) [phone] (cell) Was an appointment scheduled: No Closing statement: Results or non-symptom based questions: Thank you for calling [facility], your call will be returned within the next business day. Tyree Figueroa [facility]10-01-2024 Telephone encounter Note* Telephone Encounter - Venecia Negrete LPN - 03/26/2024 10:16 AM EDT Left message on machine to call the office. [facility]10-01-2024 Miscellaneous Notes* Telephone Encounter - Venecia Negrete LPN - 03/26/2024 10:16 AM EDT Left message on machine to call the office. * Telephone Encounter - Ary Craig APRN.CNP - 03/26/2024 9:19 AM EDT Please notify patient of results: Kidney and liver panel is normal, urine protein test was normal. LDL bad cholesterol is at goal. Triglycerides are elevated- this can improve with weight loss, following a low fat diet and increasing activity. He should continue with his cholesterol medicine atorv astatin. [facility] Telephone encounter Note * Telephone Encounter - Ary Craig APRN.CNP - 03/26/2024 9:19 AM EDT Please notify patient of results: Kidney and liver panel is normal, urine protein test was normal. LDL bad cholesterol is at goal. Triglycerides are elevated- this can improve with weight loss, following a low fat diet and increasing activity. He should continue with his cholesterol medicine atorv astatin. [facility]09-30-2024 Instructions* Patient Instructions* Ary Craig APRN.CNP - 03/25/2024 1:09 PM EDT Plan Stop: Glipizide XL 10 mg daily Start: Jardiance 10 mg daily Check your blood glucose 1 time per day and record data in logbook and bring to each visit Glucose targets as: Fasting 80-130, before meals 100-130, and bedtime 100-150 mg/dL. Call the office with blood sugars less than 70 Follow up in 3 months documented [facility] encounter[facility]24 NoteHNO ID: [id number] Author: ARY CRAIG APRN.VICKI Service: ? Author Type: Nurse Practitioner Type: Progress Notes Filed: 03/25/2024 13:52 Note Text: Endocrinology Initial Diabetes Assessment Patrick Ford is here for a consultation regarding: DM Type 2 My final recommendations will be communicated back to the requesting physician by way of shared Medical record or letter to requesting physician via [place] mail. PCP is Maricruz Torres MD, MD Maricruz Torres MD [address] [place] [address] History of Present Illness Patrick Ford is a 58 year old male presents today for evaluation of DM Type 2 Diagnosed with diabetes this year in August. BG on labs was >300 at that time and HbA1c was 7.8%. He was started on metformin but had severe diarrhea from this. He was switched to Glipizide and is tolerating well, although is feeling low blood sugar symptoms a few times per week. HbA1c was 6.7% in November. HbA1c POC today was 6.1%. BG ranging 80-140. Feels low in the 80s. Date of Diagnosis: 2023 Last HbA1c: Hemoglobin A1C (POCT) (%) Date Value 03/25/2024 6.1 Family history of diabetes includes grandfather, aunt, sister. Complications Microvascular: none Macrovascular: none Diabetic Foot and Retinal Eye Exam not Overdue Prior DM Medications: Metformin-diarrhea Current DM Related Medications: Current Medications 03/25/2024 CARDIOVASCULAR Medication Dosage Pharm Subclass Losartan-Hydrochlorothiazide 100-12.5 mg per tablet Take 1 tablet by mouth once daily. Angiotensin II Receptor Humble (ARB)-Diuretic Combinations OTHER Medication Dosage Pharm Subclass meloxicam (MOBIC) 15 mg tablet Take 1 tablet by mouth once daily. NSAID Analgesics (LAZARO Non-Specific) - Oxicam Derivatives Physical Activity: No formal program Diet: CHO Controlled Diet SMBG Frequency of Monitoring: One time a day BG Values: See scanned documents Hypoglycemia Frequency: feels low few times per week Past History, Medications, Allergies History reviewed. No pertinent past medical history. History reviewed. No pertinent surgical history. ALLERGIES Allergen Reactions Penicillin Anaphylaxis History reviewed. No pertinent family history. Review of Systems GENERAL: No weight loss, malaise or fevers RESPIRATORY: Negative for cough, hemoptysis, wheezing, COPD, dyspnea or shortness of breath CARDIOVASCULAR: Negative for chest pain, leg swelling, CHF or palpitations GI: No nausea, vomiting, or diarrhea ENDOCRINE: Negative for cold or heat intolerance, polyuria, polydipsia and goiter NEUROLOGIC:Negative for focal numbness or weakness, headaches and dizziness or syncope. Physical examination BP 116/78 Pulse 70 Wt 103.9 kg (229 lb 0.9 oz) SpO2 97% General appearance: Well appearing, alert, in no acute distress, well-hydrated, well nourished. Skin: Skin color, texture, turgor normal, no suspicious rashes or lesions HEART: normal rate LUNGS: unlabored, normal respiratory rate EXTREMITIES No deformities, No skin discoloration and No edema NEURO: Speech normal, mental status intact, no tremor noted. Previous Laboratory Results LABS No results found for: GLUC , K , NA , CHLOR , CO2 , CREAT , BUN , ANION , CA , GFR , EGFRAA , EGFROTH No results found for: ALT No results found for: TSH , FREET4 Impression/Recommendations IMPRESSION Patrick Ford is a 58 year old here for evaluation of DM Type 2 with no known complications. RECOMMENDATIONS: 1. Glycemic control: Target HbA1C is less than 7.0% per ADA guidelines. This patient is at target but endorses symptoms of hypoglycemia a few times per week. Discussed GLP1RA or SGLT2i as an alternative as these would not cause hypoglycemia and are weight friendly. He does not wish to start an injection (and Marko is not on [employer] formulary). Plan to start SGLT2i. Risks and benefits discussed. Plan Stop: Glipizide XL 10 mg daily Start: Jardiance 10 mg daily Check your blood glucose 1 time per day and record data in logbook and bring to each visit Glucose targets as: Fasting 80-130, before meals 100-130, and bedtime 100-150 mg/dL. Call the office with blood sugars less than 70 Follow up with me in 3 months Patient to continue to follow up with his PCP and with other consultants regarding his other medical problems. The patient was reminded to check their blood glucose as directed and to record the data in a logbook. This patient was advised to bring their logbook to each office visit. I recommended at least 150 minutes per week of moderate physical activity, such as walking and to reduce carbohydrates and overall caloric intake. 2. Hypertension/BP control: BP goal for patients with diabetes is 130/80. -- This patient is at target on their current regimen. 3. Lipids: Target LDL cholesterol in patients with diabetes is less than (more content not included)...[facility]09-30-2024 History of Present illness Narrative* Ary Craig APRN.SUPERVISORY AIDE - 03/25/2024 12:16 PM EDT Endocrinology Initial Diabetes Assessment Patrick Ford is here for a consultation regarding: DM Type 2 My final recommendations will be communicated back to the requesting physician by way of shared Medical record or letter to requesting physician via [place] mail. PCP is Maricruz Torres MD, MD Maricruz Torres MD [address] [place] [address] History of Present Illness Patrick Ford is a 58 year old male presents today for evaluation of DM Type 2 Diagnosed with diabetes this year in August. BG on labs was >300 at that time and HbA1c was 7.8%. He was started on metformin but had severe diarrhea from this. He was switched to Glipizide and is tolerating well, although is feeling low blood sugar symptoms afew times per week. HbA1c was 6.7% in November. HbA1c POC today was 6.1%. BG ranging 80-140. Feels low in the 80s. Date of Diagnosis: 2023 Last HbA1c: Hemoglobin A1C (POCT) (%) Date Value 03/25/2024 6.1 Family history of diabetes includes grandfather, aunt, sister. Complications Microvascular: none Macrovascular: none Diabetic Foot and Retinal Eye Exam not Overdue Prior DM Medications: Metformin-diarrhea Current DM Related Medications: Current Medications 03/25/2024 CARDIOVASCULAR Medication Dosage Pharm Subclass Losartan-Hydrochlorothiazide 100-12.5 mg per tablet Take 1 tablet by mouth once daily. Angiotensin II Receptor [place]ble (ARB)-Diuretic Combinations OTHER Medication Dosage Pharm Subclass meloxicam (MOBIC) 15 mg tablet Take 1 tablet by mouth once daily. NSAID Analgesics (LAZARO Non-Specific) - Oxicam Derivatives Physical Activity: No formal program Diet: CHO Controlled Diet SMBG Frequency of Monitoring: One time a day BG Values: See scanned documents Hypoglycemia Frequency: feels low few times per week Past History, Medications, Allergies History reviewed. No pertinent past medical history. History reviewed. No pertinent surgical history. ALLERGIES Allergen Reactions Penicillin Anaphylaxis History reviewed. No pertinent family history. Review of Systems GENERAL: No weight loss, malaise or fevers RESPIRATORY: Negative for cough, hemoptysis, wheezing, COPD, dyspnea or shortness of breath CARDIOVASCULAR: Negative for chest pain, leg swelling, CHF or palpitations GI: No nausea, vomiting, or diarrhea ENDOCRINE: Negative for cold or heat intolerance, polyuria, polydipsia and goiter NEUROLOGIC:Negative for focal numbness or weakness, headaches and dizziness or syncope. Physical examination BP 116/78 Pulse 70 Wt 103.9 kg (229 lb 0.9 oz) SpO2 97% General appearance: Well appearing, alert, in no acute distress, well-hydrated, well nourished. Skin: Skin color, texture, turgor normal, no suspicious rashes or lesions HEART: normal rate LUNGS: unlabored, normal respiratory rate EXTREMITIES No deformities, No skin discoloration and No edema NEURO: Speech normal, mental status intact, no tremor noted. Previous Laboratory Results LABS No results found for: GLUC , K , NA , CHLOR , CO2 , CREAT , BUN , ANION , CA , GFR , EGFRAA , EGFROTH No results found for: ALT No results found for: TSH , FREET4 Impression/Recommendations IMPRESSION Patrick Ford is a 58 year old here for evaluation of DM Type 2 with no known complications. RECOMMENDATIONS: 1. Glycemic control: Target HbA1C is less than 7.0% per ADA guidelines. This patient is at target but endorses symptoms of hypoglycemia a few times per week. Discussed GLP1RA or SGLT2i as an alternative as these would not cause hypoglycemia and are weight friendly. He does not wish to start an injection (and Marko is not on [employer] formulary). Plan to start SGLT2i. Risks and benefits discussed. Plan Stop: Glipizide XL 10 mg daily Start: Jardiance 10 mg daily Check your blood glucose 1 time per day and record data in logbook and bring to each visit Glucose targets as: Fasting 80-130, before meals 100-130, and bedtime 100-150 mg/dL. Call the office with blood sugars less than 70 Follow up with me in 3 months Patient to continue to follow up with his PCP and with other consultants regarding his other medical problems. The patient was reminded to check their blood glucose as directed and to record the data in a logbook. This patient was advised to bring their logbook to each office visit. I recommended at least 150minutes per week of moderate physical activity, such as walking and to reduce carbohydrates and overall caloric intake. 2. Hypertension/BP control: BP goal for patients with diabetes is 130/80. -- This patient is at target on their current regimen. 3. Lipids: Target LDL cholesterol in patients with diabetes is less than 100, less than 70 if patient has overt CVD. Several studies have shown cardiovascular benefits of statin therapy in all patients with diabetes over age 40 with at least 1 CVD risk factor. No results found for: CHOL , HDL , LDL , TG -- This patient is not up to date on lipid testing and fasting lipid profile was ordered today. 4. Nephropathy screening: Annual measurement of urine albumin excretion is recommended in patients with diabetes. No results found for: UALBCR , UPROT , UCR , UCRR , UALB -- This patient is not up to date on microalbumin screening and this was ordered today. 5. Ophthalmology: Annual dilated eye exams are recommended for patients with type 1 and type 2 diabetes. -- This patient is not up to date with their annual eye exam and was referred to an ophthalmologistat this visit. Any part of this document that has been added/copied & pasted from other documents has been reviewed for accuracy and updated as appropriate at the time of the patient encounter Ary Craig APRN.SUPERVISORY AIDE (Signed electronically to expedite mailing) documented in this encounterCleveland ClinicEvaluation note* Diagnosis Onset Date Resolution Status Dyspnea acute Sleep apnea, obstructive acu te [facility] Work Phone: Evaluation note* Diagnosis Type 2 diabetes mellitus without complication, without long-term current use of insulin (HCC)- Primary Primary hypertension Unspecified essential hypertension Other hyperlipidemia documented in this encounter [facility] Summary Purpose Family History No Family History Records Found Relationship Condition Age at Onset Recorded Date/T starla mother Hypothyroidism Unknown father Unknown sister Acromegaly Unknown Diabetes mellitus Unknown Malignant neoplasm Unknown Advance Directives No Advanced Directives Records Found Advance Directive Response Recorded Date/ Time Advance Directives No September 26 1:22pm Advance Directive Response Recorded Date/ Time Advance Directives No September 26 12:22pm Chief Complaint and Reason for Visit Chief Complaint rodrigo/ 3 months r06.00 Reason for Visit Dyspnea Sleep apnea, obstructive Chief Complaint rodrigo/ 3 months r06.00 R06.00 R06.00 Reason for Visit Dyspnea Sleep apnea, obstructive Chief Complaint CEA: 3 mo f/u Dyspne a, RODRIGO Reason for Visit Dyspnea Sleep apnea, obstructive Chief Complaint Admit Date CEA: 3 mo f/u Dyspnea, RODRIGO April 09, 2024 12:58pm R06.00 May 13, 2024 2:18pm Reason for Visit Admit Date Dyspnea April 09, 2024 1 2:58pm Sleep apnea, obstructive April 09, 2 024 12:58pm Additional Source Comments (unrecognized sect ion and content) No Status Records FoundNo Status Records FoundNo Status Records Found INFORMATION SOURCE (unrecogn ized section and content) DATE CREATED AUTHOR 07/18/2023 [facility] DATE CREATED AUTHOR AUTHOR'S ORGANIZ ATION 07/14/2024 [facility] DATE CREATED AUTHOR AUTHOR'S ORGANIZ ATION 08/16/2024 [facility] Care Teams (unrecognized sec tion and content) Team Status: Active Member Role Status Dates NON STAFF Primary Care Provider Active Team Status: Inactive Member Role Status Dates NON STAFF Primary Care Provider Active Start: January 03, 2024 End: January 03, 2024 Michael Crews MD Attending Provider Active Start: January 03, 2024 End: January 03, 2024 Team Status: Active Member Role Status Dates Óscar Finn PA-C Primary Care Provider Active Team Status: Inactive Member Role Status Dates Michael Crews MD Attending Provider Active Start: January 08, 2024 End: January 08, 2024 Óscar Finn PA-C Primary Care Provider Active Start: January 08, 2024 End: January 08, 2024 Team Status: Active Member Role Status Dates Michael Crews MD Attending Pr ovider, Other Provider Active Start: January 08, 2024 Óscar Finn PA-C Primary Care Provider Active Start: January 08, 2024 Customer Service Sales Consultant Relationship Specialty Start Date End Date Maricruz Torres MD PCP - General Family Medicine 02/27/18 Customer Service Sales Consultant Relationship Specialty Start Date End Date Maricruz Torres MD PCP - General Family Medicine 02/27/18 Customer Service Sales Consultant Relationship Specialty Start Date End Date Maricruz Torres MD PCP - General Family Medicine 02/27/18 Team Status: Active Member Role Status Dates PHYSICIAN NO FAMILY Primary Care Provider Active Team Status: Inactive Member Role Status Dates Michael Crews MD Attending Provider Active Start: April 09, 2024 End: April 09, 2024 PHYSICIAN NO FAMILY Primary Care Provider Active Start: April 09, 2024 End: April 09, 2024 Team Status: Active Member Role Status Dates Tati Farias (Clinic) , [facility] Primary Care Prov ider Active Team Status: Inactive Member Role Status Dates Michael Crews MD Attending Provider Active Start: May 13, 2024 End: May 13, 2024 Tati Farias (Clinic) , [facility] Primary Care Provider Active Start: May 132023 End: May 13, 2024 Customer Service Sales Consultant Relationship Specialty Start Date End Date Maricruz Torres MD PCP - General Family Medicine 02/27/18 Goals (unrecognized section and content) Goals may be documented in a n alternate sectionGoals may be documented in an alternate sectionGoals may be documented in an alternate sectionGoals may be documented in an alternate section Source Comments (unrecognize d section and content) In the event this informatio n is protected by the Federal Confidentiality of Alcohol and Drug Abuse Patient Records regulations: The Federal rules restrict any use of the information to criminally investigate or prosecute any alcohol or drug abuse patient.[facility] the event this information is protected by the Federal Confidentiality of Alcohol and Drug Abuse Patient Records regulations: The Federal rules restrict any use of the information to criminally investigate or prosecute any alcohol or drug abuse patient.[facility] HospitalIn the event this information is protected by the Federal Confidentiality of Alcohol and Drug Abuse Patient Records regulations: The Federal rules restrict any use of the information to criminally investigate or prosecute any alcohol or drug abuse patient.[facility] HospitalIn the event this information is protected by the Federal Confidentiality of Alcohol and Drug Abuse Patient Records regulations: The Federal rules restrict any use of the information to criminally investigate or prosecute any alcohol or drug abuse patient.[facility] Reason for Visit (unrecogniz ed section and content) Reason Comments New Patient Reason Comments Orders Reason Comments Follow Up FOR RECORDS PERTAINING TO PATIENTS WHO ARE OR HAVE BEEN ENROLLED IN A CHEMICAL DEPENDENCY/SUBSTANCEABUSE PROGRAM, SOME INFORMATION MAY BE OMITTED. This clinical summary was aggregated from multiple sources. Caution should be exercised in using it in the provision of clinical care. This summary normalizes information from multiple sources, and as a consequence, information in this document may materially change the coding, format and clinical context of patient data. In addition, data may be omitted in some cases. CLINICAL DECISIONS SHOULD BE BASED ON THE PRIMARY CLINICAL RECORDS. [employer] [facility]. provides no warranty or guarantee of the accuracy or completeness of information in this document.
--- NOTE | 2024-09-28 18:16 | ECG_ITS ---
[facility] Test Date: 2024-09-28 Pat Name: ROBERT FRITZ Department: Room: - Gender: Male International Accountant: : [id number] Requested By: [id number] Order Number: [id number] Reading MD: SHANTEL BARAKAT M.D. Measurements Intervals [place] Rate: 82 P: 52 CA: 170 QRS: 28 QRSD: 100 T: 41 QT: 366 QTc: 405 Interpretive Statements 1100 Sinus rhythm 9110 normal ECG Compared to ECG 08/25/2023 20:55:11 No significant changes Electronically Signed On 09-29-2024 6:34:43 EDT by SHANTEL BARAKAT M.D.
[2024-09-28 18:22] LABS: Basophils Percent Auto 0.4 % (0.2-2.0); Eosinophils Absolute Auto 0.4 10^3/uL (0.0-0.7); Eosinophils Percent Auto 3.8 % (0.9-7.0); Hematocrit 49.4 % (42.0-54.0); Hemoglobin 16.6 g/dL (14.0-18.0); Immature Granulocytes Abs Auto 0.04 10^3/uL (0.00-0.03); Immature Granulocytes Pct Auto 0.4 % (0.0-0.5); Lymphocytes Percent Auto 30.9 % (20.5-60.0); Mean Corpuscular HGB Conc 33.6 g/dL (29.9-35.2); Mean Corpuscular Volume 86.4 fL (80.0-94.0); Mean Platelet Volume 10.2 fL (9.5-13.5); Monocytes Absolute Auto 1.1 10^3/uL (0.3-0.8); Monocytes Percent Auto 11.2 % (1.7-12.0); Neutrophils Absolute Auto 5.1 10^3/uL (1.4-6.5); Neutrophils Percent Auto 53.3 % (43.0-75.0); Platelet Count 192 10^3/uL (150-450); Red Blood Count 5.72 10^6/uL (4.70-6.10); Red Cell Distribution Width 12.6 % (11.0-15.0); White Blood Count 9.6 10^3/uL (4.0-11.0)
--- NOTE | 2024-09-28 18:31 | ED_ITS ---
HPI - Neuro Symptoms/Deficit General Chief Complaint: Neuro Symptoms/Deficit Stated Complaint: NECK NUMBNESS, TRAVELING Time Seen by Provider: 09/28/24 18:02 Source: patient Mode of arrival: walk-in Limitations: no limitations History of Present Illness HPI Narrative: The patient is coming to the ER with multiple complaints The most recent complaint of the fact that he has been feeling this numbness in the back of the head that comes and goes for few seconds, not associated with any headache or any nausea vomiting or any other complaints The patient also have blurry vision in the left eye since September 08 and he did not seek any attention for that yet The patient does not wear any contact lenses but he wear his readers, the patient denies any headache Also denies any nausea vomiting or any other concerns he also denies any dizziness The patient is a diabetic who has his last A1c in May of last year was 6.1. The patient admits that his diabetes might not has been controlled for the last few months Related Data Home Medications ?Medication ?Instructions ?Recorded ?Confirmed amlodipine 5 mg tablet 5 mg PO DAILY 08/25/23 08/25/23 atorvastatin 40 mg tablet 40 mg PO DAILY 08/25/23 08/25/23 loratadine 10 mg tablet 10 mg PO Q24H 08/25/23 08/25/23 losartan 100 1 tab PO DAILY 08/25/23 08/25/23 mg-hydrochlorothiazide 25 mg tablet metoprolol succinate 25 mg 25 mg PO DAILY 08/25/23 08/25/23 tablet,extended release 24 hr Allergies Allergy/AdvReac Type Severity Reaction Status Date / Time Penicillins Allergy Severe Anaphylaxis Verified 08/25/23 21:00 Review of Systems ROS Status of ROS 10 or more systems reviewed and unremark able except as noted in history and below [facility] Medical History (Updated 08/25/23 @ 21:20 by Rolly Perez) Hypertension ?I10 - Essential (primary) hypertension (ICD-10) Social History Smoking status: Former smoker Little interest or pleasure in doing things: not at all Feeling down, depressed, or hopeless: not at all Exam Narrative Exam Narrative: Nurses notes and vital signs reviewed and patient is not hypoxic. General: Well-appearing and in no apparent distress. Skin: Warm, dry, no pallor noted. No rash. Head: Normocephalic, atraumatic. Neck: Supple, non-tender. Eye: Pupils are equal, round and EOMI. No scleral icterus. Ears, Nose, Mouth, and Throat: TM are clear, no nasal mucosal hypertrophy. Oral mucosa is moist, no posterior oropharynx erythema, uvula is mid-line Cardiovascular: Regular Rate and Rhythm without murmur, gallop or rub. Respiratory: No accessory muscle use or respiratory distress. Lungs are clear to auscultation, no wheezing, rales or rhonchi Chest Wall: no tenderness Back: No midline thoracic or lumbar vertebral tenderness. No CVA tenderness Musculoskeletal: normal ROM, no calf or popliteal tenderness, no lower extremity edema/swelling GI: Abdomen is soft, non-distended. Normal bowel sounds. No masses appreciated. No tenderness to palpation. No rebound, guarding, or rigidity noted. Neurological: A&O x4. No cranial nerve dysfunction observed. . Moves all extremities. The patient have a decrease sensation in both feet and there is stock like diabetic neuropathy pattern Psychiatric: Cooperative and interactive. Normal mood and affect. Constitutional Vital Signs, click to edit/add: Last Vital Signs Temp 98.2 F 09/28/24 18:03 Pulse 87 09/28/24 18:03 Resp 18 09/28/24 18:03 BP 125/88 09/28/24 18:03 Pulse Ox 95 09/28/24 18:03 O2 Del Method Room Air 09/28/24 18:03 Course Vital Signs Vital signs: Vital Signs Temperature 98.2 F 09/28/24 18:03 Pulse Rate 87 09/28/24 18:03 Respiratory Rate 18 09/28/24 18:03 Blood Pressure 125/88 09/28/24 18:03 Pulse Oximetry 95 09/28/24 18:03 Oxygen Delivery Method Room Air 09/28/24 18:03 Temperature 98.2 F 09/28/24 18:03 Pulse Rate 87 09/28/24 18:03 Respiratory Rate 18 09/28/24 18:03 Blood Pressure 125/88 09/28/24 18:03 Pulse Oximetry 95 09/28/24 18:03 Oxygen Delivery Method Room Air 09/28/24 18:03 MDM - Neuro Symptoms/Deficit MDM Narrative Medical decision making narrative: The patient EKG in the ER showing sinus rhythm with a heart rate of [address] elevation or depression The patient has been having symptoms at least for 2 weeks of blurry vision in the left eye in addition to his peripheral neuropathy which is mostly secondary to diabetes The patient numbness in the back of the head could be secondary to that as well but we will rule out stroke with a CAT scan Lab Data Labs: Lab Results 09/28/24 Range/Units 18:15 WBC 9.6 (4.0-11.0) 10^3/uL RBC 5.72 (4.70-6.10) 10^6/uL Hgb 16.6 (14.0-18.0) g/dL Hct 49.4 (42.0-54.0) % MCV 86.4 (80.0-94.0) fL MCH 29.0 (25.9-34.0) pg MCHC 33.6 (29.9-35.2) g/dL RDW 12.6 (11.0-15.0) % Plt Count 192 (150-450) 10^3/uL MPV 10.2 (9.5-13.5) fL Neut % (Auto) 53.3 (43.0-75.0) % Lymph % (Auto) 30.9 (20.5-60.0) % Tillman % (Auto) 11.2 (1.7-12.0) % Eos % (Auto) 3.8 (0.9-7.0) % Baso % (Auto) 0.4 (0.2-2.0) % Neut # (Auto) 5.1 (1.4-6.5) 10^3/uL Lymph # (Auto) 3.0 (1.2-3.8) 10^3/uL Tillman # (Auto) 1.1 H (0.3-0.8) 10^3/uL Eos # (Auto) 0.4 (0.0-0.7) 10^3/uL Baso # (Auto) 0.0 (0.0-0.1) 10^3/uL Abs Immat Gran (auto) 0.04 H (0.00-0.03) 10^3/uL Imm/Tot Granulo (auto) 0.4 (0.0-0.5) % Discharge Plan Discharge Patient Disposition: Still a Patient
[2024-09-28 18:39] LABS: Alanine Aminotransferase 29 U/L (16-63); Albumin Globulin Ratio 1.1; Albumin Level 3.9 g/dL (3.4-5.0); Alkaline Phosphatase 81 U/L (46-116); Anion Gap 9.7; Aspartate Amino Transferase 13 U/L (15-37); BUN Creatinine Ratio 20.4; Bilirubin Total 0.4 mg/dL (0.2-1.0); Calcium 9.2 mg/dL (8.5-10.1); Carbon Dioxide 29.5 mmol/L (21.0-32.0); Chloride 102 mmol/L (98-107); Estimated GFR (African America >60 (>=60 mL/min/1.73m^2); Estimated GFR (Non-African Ame >60 (>=60 mL/min/1.73m^2); Globulin 3.5 g/dL; Glucose 138 mg/dL (74-106); Potassium 3.2 mmol/L (3.5-5.1); Sodium 138 mmol/L (136-145); Total Protein 7.4 g/dL (6.4-8.2)
[2024-09-28 18:42] LABS: INR 1.01; Prothrombin Time 10.7 sec (9.0-11.6)
[2024-09-28 18:48] LABS: Magnesium 1.9 mg/dL (1.8-2.4)
[2024-09-28 18:48] LABS: Troponin I High Sensitivity 6.9 pg/mL (4.0-76.1)
[2024-09-28] MEDS: 0.9 % SODIUM CHLORIDE 1,000 ML 500 ML IV (19:24)
[2024-09-28] MEDS: POTASSIUM BICARBONATE/CIT 25 MEQ TABLET EFF PO (19:24)
[2024-09-30 13:08] LABS: Vitamin B12 285 pg/mL (232-1245)
== END 2024-09-28 20:05 | disposition home or self-care (01) ==
PROVIDERS: Emergency Medicine; Emergency Provider Internal Medicine; PCP Family Medicine
DX: H53.8 Other visual disturbances (principal); E11.42 Type 2 diabetes mellitus with diabetic polyneuropathy; R20.0 Anesthesia of skin; E87.6 Hypokalemia; Z87.891 Personal history of nicotine dependence
CPT/HCPCS: 36415; 70450; 80053; 82607; 83735; 84484; 85025; 85610; 93005; 99285